=== PATIENT | female | born 1995 | race Two or more races ===

== ENCOUNTER 2016-11-26 10:04 | Emergency (ER) | payer MEDICAID ==
[~2016-11-26] VITALS: Ht 157.5 cm; Wt 48.5 kg
[2016-11-26 10:32] VITALS: BP 122/72
[2016-11-26 10:52] LABS: APPEARANCE,URINE CLEAR; KETONES,URINE 1+ (NEGATIVE); LEUKOCYTE ESTERASE ,URINE NEGATIVE (NEGATIVE); NITRITE,URINE NEGATIVE (NEGATIVE); PH,URINE 6 (4.5-8.0); PROTEIN,URINE 1+ (NEGATIVE); UROBILINOGEN,URINE NORMAL MG/DL (0.0-1.0)
[2016-11-26 10:55] LABS: EOSINOPHILS % (AUTO) 3.9 % (0.0-3.0); LYMPHOCYTES % (AUTO) 30.7 % (20.0-45.0); MEAN CORPUSCULAR HEMOGLOBIN 29.7 PG (27.0-31.0); MEAN CORPUSCULAR VOLUME 93 FL (80-99); MEAN PLATELET VOLUME 7.5 FL (6.5-10.1); MONOCYTES % (AUTO) 7.3 % (1.0-10.0); NEUTROPHILS % (AUTO) 57.2 % (45.0-75.0); PLATELET COUNT 285 K/UL (150-450); RED BLOOD COUNT 4.59 M/UL (4.20-5.40); RED CELL DISTRIBUTION WIDTH 11.8 % (11.6-14.8); WHITE BLOOD COUNT 6.1 K/UL (4.8-10.8)
[2016-11-26 11:10] LABS: BACTERIA,URINE FEW /HPF; RBC,URINE 0-2 /HPF (0 - 2); SQUAMOUS EPITHELIAL CELL,UR MODERATE /LPF (NONE/OCC); WBC,URINE 0-2 /HPF (0 - 2)
[2016-11-26 11:13] LABS: ACETAMINOPHEN < 10 ug/mL (10-30); ALANINE AMINOTRANSFERASE 20 U/L (3-33); ALBUMIN/GLOBULIN RATIO 1.6 (1.0-2.7); ALCOHOL 33 mg/dL; ANION GAP 16 (5-15); ASPARTATE AMINO TRANSFERASE 30 U/L (5-40); CALCIUM 9.3 mg/dL (8.6-10.2); CARBAMAZEPINE (TEGRETOL) < 2.0 ug/mL (4.0-12.0); CARBON DIOXIDE 18 mEQ/L (20-30); CHLORIDE 106 mEQ/L (98-107); CREATININE 0.8 mg/dL (0.5-0.9); GLOMERULAR FILTRATION RATE > 60 mL/min (>60); HEMOLYSIS 12; POTASSIUM 4.3 mEQ/L (3.4-4.9); SODIUM 140 mEQ/L (135-145); TOTAL PROTEIN 7.2 g/dL (6.6-8.7)
[2016-11-26 11:38] VITALS: BP 110/63
[2016-11-26 11:39] VITALS: BP 110/63
--- NOTE | 2016-11-26 11:49 | Emergency Room Report ---
History of Present Illness General Chief Complaint: Altered Mental Status Source: Patient Present Illness HPI 21-year-old female presents ED for evaluation. Per EMS patient was found sleeping in a make shift shed. Her friends called 911. States that she was drinking alcohol last night. Upon arrival patient is confused but is more awake. admits to drinking alcohol. Denies any drug use. Upon arrival patient also stated that she did not know where her 5-year-old son was. States that the son was with her last night. Patient also notes history of seizures. Does not know what medication she takes but has the medication at home. Normally takes at nighttime did not take it last night. No seizure was witnessed. No other aggravating relieving factors. Denies any other associated symptoms Allergies: Coded Allergies: No Known Allergies (Unverified , 11/26/16) Patient History Past Medical History: seizures Past Surgical History: none Pertinent Family History: none Social History: Reports: alcohol use, Denies: drug use, smoking Last Menstrual Period: 10/28/16 Now: No : 1 Para: 1 Immunizations: UTD Reviewed Nursing Documentation: PMH: Agreed, PSxH: Agreed Nursing Documentation-PMH Past Medical History: No History, Except For Hx Seizures: Yes Review of Systems All Other Systems: negative except mentioned in HPI Physical Exam Vital Signs Date Time Temp Pulse Resp B/P Pulse Ox O2 Delivery O2 Flow Rate FiO2 11/26/16 10:05 98.2 130 20 135/76 98 Room Air Sp02 EP Interpretation: reviewed, normal General Appearance: no apparent distress, alert, GCS 15, non-toxic Head: normocephalic, atraumatic Eyes: bilateral eye PERRL, bilateral eye normal inspection ENT: hearing grossly normal, normal pharynx, no angioedema, normal voice Neck: full range of motion, supple/symm/no masses Respiratory: chest non-tender, lungs clear, normal breath sounds, speaking full sentences Cardiovascular #1: regular rate, rhythm, no edema Cardiovascular #2: 2+ carotid (R), 2+ carotid (L), 2+ radial (R), 2+ radial (L) , 2+ dorsalis pedis (R), 2+ dorsalis pedis (L) Gastrointestinal: normal bowel sounds, non tender, soft, non-distended, no guarding, no rebound Rectal: deferred Genitourinary: normal inspection, no CVA tenderness Musculoskeletal: back normal, gait/station normal, normal range of motion, non- tender Neurologic: alert, oriented x3, responsive, motor strength/tone normal, sensory intact, speech normal Psychiatric: judgement/insight normal, memory normal, mood/affect normal, no suicidal/homicidal ideation Reflexes: 3+ bicep (R), 3+ bicep (L), 3+ tricep (R), 3+ tricep (L), 3+ knee (R) , 3+ knee (L) Skin: normal color, no rash, warm/dry, well hydrated Lymphatic: no adenopathy Medical Decision Making Diagnostic Impression: Primary Impression: Alcohol intoxication Qualified Codes: F10.920 - Alcohol use, unspecified with intoxication, uncomplicated Additional Impression: Altered mental status Qualified Codes: R41.82 - Altered mental status, unspecified ER Course Hospital Course 21-year-old F presents to ED with altered mental status. witnessed drinking last night Differential diagnoses include: Psychosis, EtOH, drug abuse Clinical course patient placed on stretcher. On air sampling and monitoring. After initial history and physical ordered labs, IV fluids, EKG Labs reviewed-electrolytes okay, no leukocytosis, hemoglobin/hematocrit stable, tox panel negative, + ETOH EKG shows sinus tachycardia no acute changes interpreted by me Patient is now awake alert oriented x3, ambulating. Police were called regarding the son. They found out that the son is with family friends at home safely. Patient can be safely discharged at this time i. I feel this is a highly complex case requiring extensive working including EKG/Rhythm strip, Xray/CT/US, Blood/urine lab work, repeat exams while in ED, and administration of strong opiates/narcotics for pain control, admission to hospital or close patient follow up. Diagnosis - alcohol intoxication, AMS Stable and discharged to home. Followup with PMD. Return to ED if symptoms recur or worsen Labs Test 11/26/16 10:27 White Blood Count 6.1 K/UL (4.8-10.8) Red Blood Count 4.59 M/UL (4.20-5.40) Hemoglobin 13.6 G/DL (12.0-16.0) Hematocrit 42.6 % (37.0-47.0) Mean Corpuscular Volume 93 FL (80-99) Mean Corpuscular Hemoglobin 29.7 PG (27.0-31.0) Mean Corpuscular Hemoglobin Concent 32.0 G/DL (32.0-36.0) Red Cell Distribution Width 11.8 % (11.6-14.8) Platelet Count 285 K/UL (150-450) Mean Platelet Volume 7.5 FL (6.5-10.1) Neutrophils (%) (Auto) 57.2 % (45.0-75.0) Lymphocytes (%) (Auto) 30.7 % (20.0-45.0) Monocytes (%) (Auto) 7.3 % (1.0-10.0) Eosinophils (%) (Auto) 3.9 % (0.0-3.0) Basophils (%) (Auto) 1.0 % (0.0-2.0) Urine Color Pale yellow Urine Appearance Clear Urine pH 6 (4.5-8.0) Urine Specific [place] 1.020 (1.005-1.035) Urine Protein 1+ (NEGATIVE) Urine Glucose (UA) Negative (NEGATIVE) Urine Ketones 1+ (NEGATIVE) Urine Occult Blood Negative (NEGATIVE) Urine Nitrite Negative (NEGATIVE) Urine Bilirubin Negative (NEGATIVE) Urine Urobilinogen Normal MG/DL (0.0-1.0) Urine Leukocyte Esterase Negative (NEGATIVE) Urine RBC 0-2 /HPF (0 - 2) Urine WBC 0-2 /HPF (0 - 2) Urine Squamous Epithelial Cells Moderate /LPF (NONE/OCC) Urine Bacteria Few /HPF (NONE) Urine HCG, Qualitative Negative Sodium Level 140 mEQ/L (135-145) Potassium Level 4.3 mEQ/L (3.4-4.9) Chloride Level 106 mEQ/L (98-107) Carbon Dioxide Level 18 mEQ/L (20-30) Anion Gap 16 (5-15) Blood Urea Nitrogen 7 mg/dL (7-23) Creatinine 0.8 mg/dL (0.5-0.9) Estimat Glomerular Filtration Rate > 60 mL/min (>60) Glucose Level 90 mg/dL (74-106) Calcium Level 9.3 mg/dL (8.6-10.2) Total Bilirubin < 0.2 mg/dL (0.0-1.2) Aspartate Amino Transf (AST/SGOT) 30 U/L (5-40) Alanine Aminotransferase (ALT/SGPT) 20 U/L (3-33) Alkaline Phosphatase 74 U/L (35-104) Total Protein 7.2 g/dL (6.6-8.7) Albumin 4.5 g/dL (3.5-5.2) Globulin 2.7 g/dL Albumin/Globulin Ratio 1.6 (1.0-2.7) Salicylates Level < 1 mg/dL (10-30) Urine Opiates Screen Negative (NEGATIVE) Acetaminophen Level < 10 ug/mL (10-30) Urine Barbiturates Screen Negative (NEGATIVE) Phenytoin (Dilantin) Level < 0.8 ug/mL (10-20) Carbamazepine (Tegretol) Level < 2.0 ug/mL (4.0-12.0) Phencyclidine (PCP) Screen Negative (NEGATIVE) Urine Amphetamines Screen Negative (NEGATIVE) Phenobarbital Level < 2.4 ug/mL (20.0-40.0) Urine Benzodiazepines Screen Negative (NEGATIVE) Urine Cocaine Screen Negative (NEGATIVE) Urine Marijuana (THC) Screen Negative (NEGATIVE) Serum Alcohol 33 mg/dL EKG Diagnostic Results Rate: tachycardiac Rhythm: NSR ST Segments: no acute changes ASA given to the pt in ED: No Rhythm Strip Diag. Results EP Interpretation: yes Rhythm: NSR, no PVC's, no ectopy Last Vital Signs Date Time Temp Pulse Resp B/P Pulse Ox O2 Delivery O2 Flow Rate FiO2 11/26/16 11:39 98.2 97 16 110/63 99 Room Air Status: improved Disposition: HOME, SELF-CARE Condition: Stable Patient Instructions: Alcohol Intoxication SUJATHA DICK M.D. Nov 26, 2016 11:49
--- NOTE | 2016-11-27 12:03 | Cardiology Report ---
APPROVED REPORT EKG Measurement Heart [id number] Sinus tachycardia Rightward axis Borderline ECG
== END 2016-11-26 11:39 | disposition home or self-care (01) ==
LOC: EDBD 10:04 → EMR 11:28
DX: R41.82 Altered mental status, unspecified (principal); F10.920 Alcohol use, unspecified with intoxication, uncomplicated
CPT/HCPCS: 36415; 80053; 80156; 80184; 80185; 80300; 80329; 81003; 81025; 82962; 85025; 93005; 96374

== ENCOUNTER 2017-09-19 18:23 | Emergency (ER) | payer MEDICAID ==
[~2017-09-19] VITALS: Ht 160 cm; Wt 51.7 kg
[2017-09-19] MEDS ORDERED: KEPPRA500 M4 ORAL (18:32)
[2017-09-19 18:34] VITALS: BP 123/76
--- NOTE | 2017-09-19 18:44 | Emergency Room Report ---
History of Present Illness General Chief Complaint: Seizure Source: Patient Present Illness HPI Patient is a 21-year-old female presented after witnessed seizure. Patient prior history of seizure disorder and reportedly been taking Keppra. The patient was noted to havePatient denied any headache. She denied any fever or dysuria. Patient states that she is not .The patient had a tonic- clonic seizure. Patient states that she's had previous seizures since age 13.The patient had. She had her Keppra dose reduced to 500 mg Allergies: Coded Allergies: No Known Allergies (Unverified , 11/26/16) Patient History Past Medical History: see triage record, seizures Reviewed Nursing Documentation: PMH: Agreed; PSxH: Agreed Nursing Documentation-PMH Hx Seizures: Yes Review of Systems All Other Systems: negative except mentioned in HPI Physical Exam Vital Signs Date Time Temp Pulse Resp B/P (MAP) Pulse Ox O2 Delivery O2 Flow Rate FiO2 09/19/17 18:27 98.3 106 20 123/76 99 Room Air 98.2 Sp02 EP Interpretation: reviewed, normal General Appearance: normal inspection, well appearing, no apparent distress, alert, GCS 15 Head: atraumatic ENT: normal ENT inspection, hearing grossly normal, normal voice Neck: normal inspection, full range of motion, supple, no bony tend Respiratory: normal inspection, lungs clear, normal breath sounds, no respiratory distress, no retraction, no wheezing Cardiovascular #1: regular rate, rhythm, no edema Gastrointestinal: normal inspection, normal bowel sounds, non tender, soft, no guarding, no hernia Genitourinary: no CVA tenderness Musculoskeletal: normal inspection, back normal, normal range of motion Neurologic: normal inspection, alert, oriented x3, responsive, criminal psychologist III-XII nml as tested, speech normal Psychiatric: normal inspection, judgement/insight normal, mood/affect normal Skin: normal inspection, normal color, no rash Medical Decision Making Diagnostic Impression: Primary Impression: Seizure disorder ER Course Patient presented for seizure. Differential diagnosis included cysticercosis, electrolyte abnormality, mass lesion, or cranial hemorrhage. Patient has a benign exam and does not appear to require any further imaging or laboratory testing at this time. Patient is loaded with IV Keppra. The patient was given prescription for other seizure medications. She is advised to take extra doses of her Keppra and Zonegran is not covered. Patient was advised follow up with her neurologist in 1-2 days for medication adjustments. Last Vital Signs Date Time Temp Pulse Resp B/P (MAP) Pulse Ox O2 Delivery O2 Flow Rate FiO2 09/19/17 18:34 106 20 Room Air 09/19/17 18:34 98.2 123/76 99 98.2 Status: improved Disposition: HOME, SELF-CARE Condition: Stable Scripts Zonisamide* (ZONEGRAN*) 100 Mg Capsule 100 MG ORAL DAILY, #30 CAP 0 Refills Prov: Solomon Calloway 09/19/17 Solomon Calloway September 19, 2017 18:44
[2017-09-19] MEDS ORDERED: ZONEGRAN100 MG ORAL (19:35)
[2017-09-19] MEDS ORDERED: levETIRAcetam 500mg/NS100ml 100 ML IVPB ONE (19:45)
[2017-09-19 20:05] VITALS: BP 104/60
[2017-09-19 20:18] VITALS: BP 104/60
== END 2017-09-19 20:19 | disposition home or self-care (01) ==
LOC: EMR 18:59
DX: G40.909 Epilepsy, unspecified, not intractable, without status epilepticus (principal)
CPT/HCPCS: 81025; 96361; 96374; 99284; J1953

== ENCOUNTER 2017-10-31 15:29 | Emergency (ER) | payer SELFPAY ==
[~2017-10-31] VITALS: Ht 157.5 cm; Wt 51.7 kg
[~2017-10-31 15:29] MED LIST: KEPPRA500 M4 ORAL; ZONEGRAN100 MG ORAL
[2017-10-31 15:46] VITALS: BP 118/67
[2017-10-31] MEDS ORDERED: IBUPROFEN600 MG ORAL (16:19)
[2017-10-31] MEDS ORDERED: PERMETHRIN60 GM TOPIC (16:19)
--- NOTE | 2017-10-31 16:32 | Emergency Room Report ---
History of Present Illness General Chief Complaint: General Complaint Source: Patient Present Illness HPI 22-year-old female presents today with a scalp wound. Patient states that she had it for about a month which was a bump and then she picked at it and it started bleeding. No purulent drainage. No fever no chills. Also states that she has lice. No other complaints Allergies: Coded Allergies: No Known Allergies (Unverified , 11/26/16) Patient History Past Medical History: see triage record Past Surgical History: none Pertinent Family History: none Last Menstrual Period: Depoprovera Now: No Reviewed Nursing Documentation: PMH: Agreed; PSxH: Agreed Nursing Documentation-PMH Hx Seizures: Yes Review of Systems All Other Systems: negative except mentioned in HPI Physical Exam Vital Signs Date Time Temp Pulse Resp B/P (MAP) Pulse Ox O2 Delivery O2 Flow Rate FiO2 10/31/17 15:36 98.8 81 17 118/67 98 Room Air 98.8 Sp02 EP Interpretation: reviewed, normal General Appearance: normal inspection, well appearing, no apparent distress, alert, GCS 15, non-toxic Head: normocephalic - Patient multiple lice in hair. Also found to have small bump no fluctuant abscess, no purulent drainage, nontender, very small less than 1 cm, atraumatic Eyes: bilateral eye normal inspection, bilateral eye PERRL, bilateral eye EOMI ENT: normal ENT inspection, normal pharynx, normal voice, moist mucus membranes Neck: normal inspection, full range of motion, supple Respiratory: normal inspection, lungs clear, normal breath sounds, no respiratory distress, no retraction, no wheezing, speaking full sentences, chest symmetrical Cardiovascular #1: normal inspection, regular rate, rhythm, normal capillary refill Cardiovascular #2: 2+ radial (R), 2+ radial (L) Gastrointestinal: normal inspection, non tender, soft, non-distended, no guarding Musculoskeletal: normal inspection, back normal, normal range of motion, non- tender Neurologic: normal inspection, alert, oriented x3, responsive, motor strength/ tone normal, sensory intact, normal gait, speech normal Psychiatric: normal inspection, judgement/insight normal, memory normal Skin: normal inspection, normal color, no rash, warm/dry, well hydrated, normal turgor Medical Decision Making Diagnostic Impression: Primary Impression: Head lice Additional Impression: Scalp wound ER Course 22-year-old female with scalp wound DDX: Abscess versus cellulitis versus wound Physical exam more likely consistent with very small wound no signs of infection Plan: None ER course: Patient has remained stable during ED stay. Disposition: Patient is to be discharged to home. Prescriptions given aremotrin and permethrin cream for lice Patient is instructed to follow up with their primary care doctor within 5 days. Please note that this Emergency Department Report was dictated using [employer] analysis assistant technology software, occasionally this can lead to erroneous entry secondary to interpretation by the dictation equipment Last Vital Signs Date Time Temp Pulse Resp B/P (MAP) Pulse Ox O2 Delivery O2 Flow Rate FiO2 10/31/17 15:36 98.8 81 17 118/67 98 Room Air 98.8 Disposition: HOME, SELF-CARE Condition: Stable Scripts Permethrin* (ELIMITE*) 60 Gm Cream..g. 1 APPLIC TOPIC ONCE, #60 GM 0 Refills Leave on hair for 10 minutes, then rinse; repeat on day 9 Prov: Matthew Scott M.D. 10/31/17 Ibuprofen* (MOTRIN*) 600 Mg Tablet 600 MG ORAL Q8H PRN for For Pain, #30 TAB 0 Refills Prov: Matthew Scott M.D. 10/31/17 Patient Instructions: Lice, Adult, Wound Check Additional Instructions: PLEASE SEE YOUR PCP IN 1 WEEK Matthew Scott M.D. Oct 31, 2017 16:32
[2017-10-31 16:35] VITALS: BP 118/67
== END 2017-10-31 16:35 | disposition home or self-care (01) ==
LOC: EMR 16:02
DX: R22.0 Localized swelling, mass and lump, head (principal); B85.0 Pediculosis due to Pediculus humanus capitis
CPT/HCPCS: 99284

== ENCOUNTER 2018-07-29 20:55 | Inpatient (IN) | payer MEDICAID, OTHER ==
[~2018-07-29] VITALS: Ht 160 cm; Wt 54.2 kg
[~2018-07-29 20:55] MED LIST changes: +IBUPROFEN600 MG ORAL; +PERMETHRIN60 GM TOPIC
--- NOTE | 2018-07-29 21:04 | Emergency Room Report ---
History of Present Illness General Chief Complaint: altered Source: Patient, Family Member Present Illness HPI Patient presents with complaints of altered mental status reports that throughout the day today patient has appears confused Staring out into space Has not been verbal with him He reports that the patient had approximately 4 seizures last night which is not normal for her He cannot provide appropriate reasoning for why the patient was not brought in yesterday There was no reports of vomiting no reports of diarrhea Patient takes medication for seizures However also unknown medication History of present illness is significantly limited as the patient is nonverbal with us Allergies: Coded Allergies: No Known Allergies (Unverified , 11/26/16) Patient History Limited by: medical condition Past Medical History: see triage record Pertinent Family History: none Reviewed Nursing Documentation: PMH: Agreed; PSxH: Agreed Nursing Documentation-PMH Hx Seizures: Yes Review of Systems All Other Systems: limited - Other than the ones mentioned in the history of present illness all others are reviewed however they do stay limited due to the patient's mental status Physical Exam 99% on RA,normal oxygenation interpretation Sp02 EP Interpretation: reviewed, normal General Appearance: other - Patient appears confused staring around the room Head: normocephalic, atraumatic Eyes: bilateral eye other - Bilateral pupils appear somewhat dilated, minimal reaction mild conjunctival erythema ENT: normal pharynx, no angioedema Neck: supple, thyroid normal Respiratory: lungs clear, no respiratory distress, no retraction, no accessory muscle use Cardiovascular #1: regular rate, rhythm Gastrointestinal: non tender, soft Genitourinary: no CVA tenderness Musculoskeletal: other - Patient was not following all commands fully however no obvious focal deficit Neurologic: responsive - 2 physical stimuli with verbal stimuli focuses towards the stimuli, Skin: no rash, warm/dry Lymphatic: no adenopathy Medical Decision Making Diagnostic Impression: Primary Impression: Encephalopathy Additional Impression: Seizure disorder ER Course Patient is a fairly complex patient with multiple differential to consideration including but not limited to cardiac cardiopulmonary , intracranial , neurological , neurosurgical , medication reaction and vascular emergencies Patient's urine sample does not show any obvious positive on the drug screen however Medications and drug such as GHB can be negative on the screen Urine sample does show significant UTI Patient provided with further hydration Given the continued confusion CT head was obtained which was negative Consideration for Keppra overdose is also made however reports the patient did not take too many of that medication Patient is admitted for further inpatient care Labs Test 07/29/18 21:20 07/29/18 22:30 White Blood Count 8.1 K/UL (4.8-10.8) Red Blood Count 4.59 M/UL (4.20-5.40) Hemoglobin 13.7 G/DL (12.0-16.0) Hematocrit 41.3 % (37.0-47.0) Mean Corpuscular Volume 90 FL (80-99) Mean Corpuscular Hemoglobin 29.9 PG (27.0-31.0) Mean Corpuscular Hemoglobin Concent 33.2 G/DL (32.0-36.0) Red Cell Distribution Width 11.1 % (11.6-14.8) Platelet Count 256 K/UL (150-450) Mean Platelet Volume 7.9 FL (6.5-10.1) Neutrophils (%) (Auto) 67.7 % (45.0-75.0) Lymphocytes (%) (Auto) 23.7 % (20.0-45.0) Monocytes (%) (Auto) 6.2 % (1.0-10.0) Eosinophils (%) (Auto) 1.6 % (0.0-3.0) Basophils (%) (Auto) 0.9 % (0.0-2.0) Urine Color Pale yellow Urine Appearance Slightly cloudy Urine pH 6.5 (4.5-8.0) Urine Specific [place] 1.010 (1.005-1.035) Urine Protein Negative (NEGATIVE) Urine Glucose (UA) Negative (NEGATIVE) Urine Ketones 3+ (NEGATIVE) Urine Blood Negative (NEGATIVE) Urine Nitrite Positive (NEGATIVE) Urine Bilirubin Negative (NEGATIVE) Urine Urobilinogen Normal MG/DL (0.0-1.0) Urine Leukocyte Esterase 1+ (NEGATIVE) Urine RBC 2-4 /HPF (0 - 2) Urine WBC 5-10 /HPF (0 - 2) Urine Squamous Epithelial Cells Moderate /LPF (NONE/OCC) Urine Bacteria Many /HPF (NONE) Urine HCG, Qualitative Negative (NEGATIVE) Sodium Level 140 MMOL/L (136-145) Potassium Level 4.0 MMOL/L (3.5-5.1) Chloride Level 103 MMOL/L (98-107) Carbon Dioxide Level 27 MMOL/L (21-32) Anion Gap 10 mmol/L (5-15) Blood Urea Nitrogen 8 mg/dL (7-18) Creatinine 0.8 MG/DL (0.55-1.30) Estimat Glomerular Filtration Rate > 60 mL/min (>60) Glucose Level 103 MG/DL (74-106) Calcium Level 9.6 MG/DL (8.5-10.1) Total Bilirubin 0.5 MG/DL (0.2-1.0) Aspartate Amino Transf (AST/SGOT) 15 U/L (15-37) Alanine Aminotransferase (ALT/SGPT) 17 U/L (12-78) Alkaline Phosphatase 73 U/L (46-116) Total Protein 7.9 G/DL (6.4-8.2) Albumin 4.3 G/DL (3.4-5.0) Globulin 3.6 g/dL Albumin/Globulin Ratio 1.2 (1.0-2.7) Salicylates Level 0.2 ug/mL (2.8-20) Urine Opiates Screen Negative (NEGATIVE) Acetaminophen Level < 2 MCG/ML (10-30) Urine Barbiturates Screen Negative (NEGATIVE) Phenytoin (Dilantin) Level < 0.5 ug/mL (10-20) Phencyclidine (PCP) Screen Negative (NEGATIVE) Urine Amphetamines Screen Negative (NEGATIVE) Urine Benzodiazepines Screen Negative (NEGATIVE) Urine Cocaine Screen Negative (NEGATIVE) Urine Marijuana (THC) Screen Negative (NEGATIVE) Serum Alcohol < 3 mg/dL Lactic Acid Level 1.00 mmol/L (0.4-2.0) Rhythm Strip Diag. Results EP Interpretation: yes Rate: 77 Rhythm: NSR, no PVC's, no ectopy CT/MRI/US Diagnostic Results CT/MRI/US Diagnostic Results : Impression CT head:nad Status: unchanged Disposition: ADMITTED INPATIENT Condition: Serious Suman Parnell Jul 29, 2018 21:04
--- NOTE | 2018-07-29 21:22 | NUR ---
ED Nurse Note: Patient walked into ED accompanied by father c/o Altered mental status, patients dad states that the the last known well time was on sunday07/26/18. Awake disoriented. IAN LAZARO.
[2018-07-29 21:41] VITALS: BP 124/88
[2018-07-29] MEDS ORDERED: INDERAL LA80 MG ORAL (21:45)
[2018-07-29] MEDS ORDERED: INDERAL LA60 MG ORAL (21:45)
[2018-07-29 21:51] LABS: APPEARANCE,URINE SLIGHTLY CLOUDY; BILIRUBIN, URINE NEGATIVE (NEGATIVE); COLOR,URINE PALE YELLOW; GLUCOSE, URINE (UA) NEGATIVE (NEGATIVE); KETONES,URINE 3+ (NEGATIVE); LEUKOCYTE ESTERASE ,URINE 1+ (NEGATIVE); NITRITE,URINE POSITIVE (NEGATIVE); PH,URINE 6.5 (4.5-8.0); PROTEIN,URINE NEGATIVE (NEGATIVE); UROBILINOGEN,URINE NORMAL MG/DL (0.0-1.0)
[2018-07-29 21:56] LABS: BASOPHILS % (AUTO) 0.9 % (0.0-2.0); EOSINOPHILS % (AUTO) 1.6 % (0.0-3.0); HEMATOCRIT 41.3 % (37.0-47.0); HEMOGLOBIN 13.7 G/DL (12.0-16.0); LYMPHOCYTES % (AUTO) 23.7 % (20.0-45.0); MEAN CORPUSCULAR VOLUME 90 FL (80-99); MONOCYTES % (AUTO) 6.2 % (1.0-10.0); NEUTROPHILS % (AUTO) 67.7 % (45.0-75.0); PLATELET COUNT 256 K/UL (150-450); RED BLOOD COUNT 4.59 M/UL (4.20-5.40); RED CELL DISTRIBUTION WIDTH 11.1 % (11.6-14.8); WHITE BLOOD COUNT 8.1 K/UL (4.8-10.8)
[2018-07-29 22:20] LABS: ANION GAP 10 mmol/L (5-15); BLOOD UREA NITROGEN 8 mg/dL (7-18); CALCIUM 9.6 MG/DL (8.5-10.1); CARBON DIOXIDE 27 MMOL/L (21-32); CHLORIDE 103 MMOL/L (98-107); CREATININE 0.8 MG/DL (0.55-1.30); SODIUM 140 MMOL/L (136-145)
[2018-07-29 22:24] LABS: ALANINE AMINOTRANSFERASE 17 U/L (12-78); ALBUMIN 4.3 G/DL (3.4-5.0); ALBUMIN/GLOBULIN RATIO 1.2 (1.0-2.7); ALKALINE PHOSPHATASE 73 U/L (46-116); ASPARTATE AMINO TRANSFERASE 15 U/L (15-37); BILIRUBIN,TOTAL 0.5 MG/DL (0.2-1.0)
[2018-07-29] MEDS ORDERED: cefTRIAXone 1 GM in NS 55 ML IVPB ONE (22:30)
[2018-07-30] VITALS (7 sets, daily range): BP systolic 104–131; BP diastolic 63–82
--- NOTE | 2018-07-30 01:40 | NUR ---
TRANSFER TO FLOOR: Patient transferred to [facility] 319-2 as ordered, per MD Zeyad. Report given to Giovanna. Belongings list completed with receiving RN
--- NOTE | 2018-07-30 01:50 | NUR ---
NURSE NOTES: Patient received via [facility] from ER. Addendum: 07/30/18 at 0213 by Giovanna Prieto RN Received to room 309, with belongings accounted for. No visitor at bedside. Saline lock, right AC #20 Addendum: 07/30/18 at 021 by Giovanna Prieto RN Patient non-verbal. Unable to assess A/O status or history. VSS. Skin intact. Call light within reach. Placed on [place] bed, bed alarm on. Will contact MD for admission orders. Will continue to monitor.
[2018-07-30] MEDS ORDERED: LORazepam Inj 2mg/ml 1ml IV PRN ×2 (03:00→04:15)
--- NOTE | 2018-07-30 04:13 | NUR ---
NURSE NOTES S/w Theodora from [facility], clarified orders for Ativan every 5 minutes as needed for seizure and Rocephin scheduling to be adjusted according to dosage given in ER at around 2230. Addendum: 07/30/18 at 0538 by Giovanna Prieto RN Patient in room close to nurses' station. Side rails padded, and suction set up for seizure precautions.
[2018-07-30] MEDS: D5NS 1,000 ML IV SCH ×3 (04:28→23:04)
[2018-07-30 06:25] LABS: BASOPHILS % (AUTO) 0.5 % (0.0-2.0); EOSINOPHILS % (AUTO) 0.5 % (0.0-3.0); HEMATOCRIT 39.9 % (37.0-47.0); HEMOGLOBIN 13.3 G/DL (12.0-16.0); LYMPHOCYTES % (AUTO) 16.3 % (20.0-45.0); MEAN CORPUSCULAR VOLUME 90 FL (80-99); MONOCYTES % (AUTO) 5.9 % (1.0-10.0); NEUTROPHILS % (AUTO) 76.9 % (45.0-75.0); PLATELET COUNT 257 K/UL (150-450); RED BLOOD COUNT 4.43 M/UL (4.20-5.40); RED CELL DISTRIBUTION WIDTH 11.5 % (11.6-14.8); WHITE BLOOD COUNT 7.6 K/UL (4.8-10.8)
[2018-07-30 06:47] LABS: ALANINE AMINOTRANSFERASE 18 U/L (12-78); ALBUMIN/GLOBULIN RATIO 1.2 (1.0-2.7); ALKALINE PHOSPHATASE 64 U/L (46-116); ANION GAP 10 mmol/L (5-15); ASPARTATE AMINO TRANSFERASE 14 U/L (15-37); BILIRUBIN,TOTAL 0.4 MG/DL (0.2-1.0); BLOOD UREA NITROGEN 9 mg/dL (7-18); CALCIUM 9.3 MG/DL (8.5-10.1); CARBON DIOXIDE 26 MMOL/L (21-32); CHLORIDE 105 MMOL/L (98-107); CREATININE 0.7 MG/DL (0.55-1.30); POTASSIUM 3.9 MMOL/L (3.5-5.1); SODIUM 140 MMOL/L (136-145)
--- NOTE | 2018-07-30 07:30 | NUR ---
HAND-OFF: Report given to LATISHA Cuevas. Endorsed to please follow up with MD regarding home meds.
--- NOTE | 2018-07-30 07:45 | NUR ---
NURSE NOTES: Received report from Giovanna Holder RN. Rounding done with outgoing nurse. Patient a/o x1 lying on the bed. No respiratory distress noted. Patient stat no family. No one on her face sheet. Left bra was wet but no breast milk noted. Bed in lowest position, call light within reach. Will continue to monitor.
[2018-07-30] MEDS: Pantoprazole Inj IVP SCH (08:54)
[2018-07-30] MEDS: Heparin 5000 units/ml inj SUBQ SCH ×2 (08:58→21:00)
--- NOTE | 2018-07-30 09:28 | NUR ---
CASE MANAGEMENT:REVIEW 22 YR OLD FEMALE PRESENTED TO ER BY HIS FATHER CC: AMS. S/P 4 SEIZURES LAST NIGHT...ON KEPPRA SI: ENCEPHALOPATHY. SEIZURE D/O 98.2 90 17 124/88 100% ON RA DILANTIN LEVEL<0.5 IS: IV ROCEPHIN BLOOD CX CT HEAD : MED/SURG STATUS 3 EAST INTERQUAL CRITERIA MET
--- NOTE | 2018-07-30 10:06 | NUR ---
NURSE NOTES: Called DR. Jeffers regarding reconcile home meds. MD ordered continue 1. keppra 500mg q12 2. propranolol 60mg daily 3. zonisamide 100mg daily Noted and carried out.
--- NOTE | 2018-07-30 10:48 | NUR ---
NURSE NOTES: Dr. Jeffers ordered keppra level tomorrow morning.
--- NOTE | 2018-07-30 11:33 | History & Physical ---
History and Physical History & Physicial seen and examined. Full Dictation completed on 1133 hrs Crissy Jeffers MD Jul 30, 2018 11:33
--- NOTE | 2018-07-30 11:35 | General Progress Note ---
Assessment/Plan Assessment/Plan full dictaino in progress Plan: 1- Sz : uncontrolled 2- prolonged post ictal phase Will consult Neuro c/w home meds Subjective Allergies: Coded Allergies: No Known Allergies (Unverified , 11/26/16) Objective Last 24 Hour Vital Signs Date Time Temp Pulse Resp B/P (MAP) Pulse Ox O2 Delivery O2 Flow Rate FiO2 07/30/18 08:00 98.6 104 19 110/82 (91) 97 104 07/30/18 06:01 Room Air 07/30/18 04:32 98.1 82 16 126/77 (93) 96 07/30/18 02:00 98.0 86 17 129/82 (98) 96 07/30/18 01:40 98.0 86 17 129/82 96 Room Air 07/30/18 00:00 98.0 86 17 129/82 (98) 96 07/29/18 21:41 90 17 Room Air 07/29/18 21:41 98.2 98 17 124/88 100 Room Air 07/29/18 21:06 98.2 90 17 124/88 100 Room Air Intake and Output 07/29/18 07/30/18 18:59 06:59 Intake Total 240 ml Balance 240 ml Intake Oral 240 ml # Voids 1 Laboratory Tests 07/29/18 21:20: White Blood Count 8.1, Red Blood Count 4.59, Hemoglobin 13.7, Hematocrit 41.3, Mean Corpuscular Volume 90, Mean Corpuscular Hemoglobin 29.9, Mean Corpuscular Hemoglobin Concent 33.2, Red Cell Distribution Width 11.1L, Platelet Count 256, Mean Platelet Volume 7.9, Neutrophils (%) (Auto) 67.7, Lymphocytes (%) (Auto) 23.7, Monocytes (%) (Auto) 6.2, Eosinophils (%) (Auto) 1.6, Basophils (%) (Auto ) 0.9, Urine Color Pale yellow, Urine Appearance Slightly cloudy, Urine pH 6.5, Urine Specific [place] 1.010, Urine Protein Negative, Urine Glucose (UA) Negative, Urine Ketones 3+H, Urine Blood Negative, Urine Nitrite PositiveH, Urine Bilirubin Negative, Urine Urobilinogen Normal, Urine Leukocyte Esterase 1+ H, Urine RBC 2-4H, Urine WBC 5-10H, Urine Squamous Epithelial Cells ModerateH, Urine Bacteria ManyH, Urine HCG, Qualitative Negative, Sodium Level 140, Potassium Level 4.0, Chloride Level 103, Carbon Dioxide Level 27, Anion Gap 10, Blood Urea Nitrogen 8, Creatinine 0.8, Estimat Glomerular Filtration Rate > 60, Glucose Level 103, Calcium Level 9.6, Total Bilirubin 0.5, Aspartate Amino Transf (AST/SGOT) 15, Alanine Aminotransferase (ALT/SGPT) 17, Alkaline Phosphatase 73, Total Protein 7.9, Albumin 4.3, Globulin 3.6, Albumin/Globulin Ratio 1.2, Salicylates Level 0.2L, Urine Opiates Screen Negative, Acetaminophen Level < 2L, Urine Barbiturates Screen Negative, Phenytoin (Dilantin) Level < 0.5L, Phencyclidine (PCP) Screen Negative, Urine Amphetamines Screen Negative, Urine Benzodiazepines Screen Negative, Urine Cocaine Screen Negative, Urine Marijuana (THC) Screen Negative, Serum Alcohol < 3 07/29/18 22:30: Lactic Acid Level 1.00 07/30/18 05:45: White Blood Count 7.6, Red Blood Count 4.43, Hemoglobin 13.3, Hematocrit 39.9, Mean Corpuscular Volume 90, Mean Corpuscular Hemoglobin 30.1, Mean Corpuscular Hemoglobin Concent 33.5, Red Cell Distribution Width 11.5L, Platelet Count 257, Mean Platelet Volume 8.5, Neutrophils (%) (Auto) 76.9H, Lymphocytes (%) (Auto) 16.3L, Monocytes (%) (Auto) 5.9, Eosinophils (%) (Auto) 0.5, Basophils (%) (Auto ) 0.5, Sodium Level 140, Potassium Level 3.9, Chloride Level 105, Carbon Dioxide Level 26, Anion Gap 10, Blood Urea Nitrogen 9, Creatinine 0.7, Estimat Glomerular Filtration Rate > 60, Glucose Level 124H, Calcium Level 9.3, Total Bilirubin 0.4, Aspartate Amino Transf (AST/SGOT) 14L, Alanine Aminotransferase ( ALT/SGPT) 18, Alkaline Phosphatase 64, Total Protein 7.3, Albumin 4.0, Globulin 3.3, Albumin/Globulin Ratio 1.2 Height (Feet): 5 Height (Inches): 3.00 Weight (Pounds): 120 Crissy Jeffers MD Jul 30, 2018 11:35
--- NOTE | 2018-07-30 12:15 | NUR ---
*-* INSURANCE *-* CLINICALS AND REVIEWS HAVE BEEN FAXED TO: [facility] ADMISSION REPORTED TO THAIS THIS IS A DUEL RISK AUTH#: [id number] NCM: PND FAX: [phone] PLEASE FAX CLINICALS TO ABOVE # Addendum: 07/31/18 at 0857 by MARIE SALINAS CM ba# [id number] Addendum: 07/31/18 at 0857 by MARIE SALINAS CM RUSSEL: MARIELENA P:[phone] F:[phone] DISCHARGE PLANNING F:[phone]
--- NOTE | 2018-07-30 12:35 | Diagnostic Imaging Report ---
Indications: Altered mental status Technique: Spiral acquisitions obtained through the brain. Angled axial and coronal 5 x 5 mm slices were reconstructed. Total dose length product 1344.42 mGycm. CTDI vol(s) 70.38 mGy. Dose reduction achieved using automated exposure control Comparison: None. Findings: Acute intracranial hemorrhage or edema, mass effect, nor midline shift. Normal hoffman-white differentiation. Normal-sized ventricles and extra-axial CSF spaces. Impression: Negative This agrees with the preliminary interpretation provided overnight by [facility] teleradiology service. The CT scanner at [facility] is accredited by the [employer] and the scans are performed using protocols designed to limit radiation exposure to as low as reasonably achievable to attain images of sufficient resolution adequate for diagnostic evaluation.
--- NOTE | 2018-07-30 19:45 | NUR ---
HAND-OFF: Report given to Elenita, POWER CRANE OPERATOR. Patient in stable condition.
--- NOTE | 2018-07-30 20:03 | Neurology Progress Note ---
Interim History Interim History ROS Limited/Unobtainable: Yes Complaints: Admission for Seizure Events: 1. UTI 2. AMS - Prolonged post ictal phase. Interim History HPI: 22 year old female presenting with complaints of altered mental status reports that throughout the day today patient has appears confused Staring out into space Has not been verbal with him He reports that the patient had approximately 4 seizures last night which is not normal for her He cannot provide appropriate reasoning for why the patient was not brought in yesterday There was no reports of vomiting no reports of diarrhea Patient takes medication for seizures However also unknown medication History of present illness is significantly limited as the patient has been largely nonverbal during most exams. Objective Physical Exam Last Vital Signs Date Time Temp Pulse Resp B/P (MAP) Pulse Ox O2 Delivery O2 Flow Rate FiO2 07/30/18 16:00 98.1 78 18 115/74 (88) 97 07/30/18 09:00 Room Air Laboratory Tests Test 07/29/18 21:20 07/29/18 22:30 07/30/18 05:45 White Blood Count 8.1 K/UL (4.8-10.8) 7.6 K/UL (4.8-10.8) Red Blood Count 4.59 M/UL (4.20-5.40) 4.43 M/UL (4.20-5.40) Hemoglobin 13.7 G/DL (12.0-16.0) 13.3 G/DL (12.0-16.0) Hematocrit 41.3 % (37.0-47.0) 39.9 % (37.0-47.0) Mean Corpuscular Volume 90 FL (80-99) 90 FL (80-99) Mean Corpuscular Hemoglobin 29.9 PG (27.0-31.0) 30.1 PG (27.0-31.0) Mean Corpuscular Hemoglobin Concent 33.2 G/DL (32.0-36.0) 33.5 G/DL (32.0-36.0) Red Cell Distribution Width 11.1 % (11.6-14.8) L 11.5 % (11.6-14.8) L Platelet Count 256 K/UL (150-450) 257 K/UL (150-450) Mean Platelet Volume 7.9 FL (6.5-10.1) 8.5 FL (6.5-10.1) Neutrophils (%) (Auto) 67.7 % (45.0-75.0) 76.9 % (45.0-75.0) H Lymphocytes (%) (Auto) 23.7 % (20.0-45.0) 16.3 % (20.0-45.0) L Monocytes (%) (Auto) 6.2 % (1.0-10.0) 5.9 % (1.0-10.0) Eosinophils (%) (Auto) 1.6 % (0.0-3.0) 0.5 % (0.0-3.0) Basophils (%) (Auto) 0.9 % (0.0-2.0) 0.5 % (0.0-2.0) Urine Color Pale yellow Urine Appearance Slightly cloudy Urine pH 6.5 (4.5-8.0) Urine Specific [place] 1.010 (1.005-1.035) Urine Protein Negative (NEGATIVE) Urine Glucose (UA) Negative (NEGATIVE) Urine Ketones 3+ (NEGATIVE) H Urine Blood Negative (NEGATIVE) Urine Nitrite Positive (NEGATIVE) H Urine Bilirubin Negative (NEGATIVE) Urine Urobilinogen Normal MG/DL (0.0-1.0) Urine Leukocyte Esterase 1+ (NEGATIVE) H Urine RBC 2-4 /HPF (0 - 2) H Urine WBC 5-10 /HPF (0 - 2) H Urine Squamous Epithelial Cells Moderate /LPF (NONE/OCC) H Urine Bacteria Many /HPF (NONE) H Urine HCG, Qualitative Negative (NEGATIVE) Sodium Level 140 MMOL/L (136-145) 140 MMOL/L (136-145) Potassium Level 4.0 MMOL/L (3.5-5.1) 3.9 MMOL/L (3.5-5.1) Chloride Level 103 MMOL/L (98-107) 105 MMOL/L (98-107) Carbon Dioxide Level 27 MMOL/L (21-32) 26 MMOL/L (21-32) Anion Gap 10 mmol/L (5-15) 10 mmol/L (5-15) Blood Urea Nitrogen 8 mg/dL (7-18) 9 mg/dL (7-18) Creatinine 0.8 MG/DL (0.55-1.30) 0.7 MG/DL (0.55-1.30) Estimat Glomerular Filtration Rate > 60 mL/min (>60) > 60 mL/min (>60) Glucose Level 103 MG/DL (74-106) 124 MG/DL (74-106) H Calcium Level 9.6 MG/DL (8.5-10.1) 9.3 MG/DL (8.5-10.1) Total Bilirubin 0.5 MG/DL (0.2-1.0) 0.4 MG/DL (0.2-1.0) Aspartate Amino Transf (AST/SGOT) 15 U/L (15-37) 14 U/L (15-37) L Alanine Aminotransferase (ALT/SGPT) 17 U/L (12-78) 18 U/L (12-78) Alkaline Phosphatase 73 U/L (46-116) 64 U/L (46-116) Total Protein 7.9 G/DL (6.4-8.2) 7.3 G/DL (6.4-8.2) Albumin 4.3 G/DL (3.4-5.0) 4.0 G/DL (3.4-5.0) Globulin 3.6 g/dL 3.3 g/dL Albumin/Globulin Ratio 1.2 (1.0-2.7) 1.2 (1.0-2.7) Salicylates Level 0.2 ug/mL (2.8-20) L Urine Opiates Screen Negative (NEGATIVE) Acetaminophen Level < 2 MCG/ML (10-30) L Urine Barbiturates Screen Negative (NEGATIVE) Phenytoin (Dilantin) Level < 0.5 ug/mL (10-20) L Phencyclidine (PCP) Screen Negative (NEGATIVE) Urine Amphetamines Screen Negative (NEGATIVE) Urine Benzodiazepines Screen Negative (NEGATIVE) Urine Cocaine Screen Negative (NEGATIVE) Urine Marijuana (THC) Screen Negative (NEGATIVE) Serum Alcohol < 3 mg/dL Lactic Acid Level 1.00 mmol/L (0.4-2.0) Neurologic Exam Objective NO PHYSICAL ASSESSMENT PERFORMED PATIENT WAS TRANSFERRED TO [facility] DUE TO CAPITATED HOSPITAL INSURANCE. Impression/Recommendations Problems: (1) Seizure disorder (2) UTI (urinary tract infection) (3) Altered mental status Status: stable, ambulating well Diagnostic Impression Prolonged Post Ictal Phase vs Psychogenic cause - Non focal findings and limited responses appropriate but unable to obtain as patient would not or was not able to answer all questions- she could not articulate which. Recommendations Continue Zonisamide/ Keppra Q4 Neuro Checks Consider consulting PSYCH Outpatient EEG Angela Garsia N.P. Jul 30, 2018 20:03
--- NOTE | 2018-07-30 20:25 | Consultation ---
History of Present Illness General Date patient seen: Jul 30, 2018 Chief Complaint: Altered Mental Status Reason for Consultation: Prolonged post ictal confusion Present Illness HPI 22 year old female presenting with altered mental status on 07/29/18 after approximately 4 seizures on prior evening as reported by . Her reported patient staring out into space throughout the day, appearing to be confused and was non-verbal upon admission. He reports that this seizure activity was not normal for the patient. Since her admission, she has not had any further seizure activity or focal deficits but remains somnolent, confused, and minimally verbal. Allergies: Coded Allergies: No Known Allergies (Unverified , 11/26/16) Medication History Scheduled Levetiracetam (Keppra), 500 MG ORAL EVERY 12 HOURS, (Reported) Permethrin* (Elimite*), 1 APPLIC TOPIC ONCE Propranolol Hcl* (Inderal La*), 60 MG ORAL DAILY, (Reported) Propranolol Hcl* (Inderal La*), 80 MG ORAL DAILY, (Reported) Zonisamide* (Zonegran*), 100 MG ORAL DAILY Scheduled PRN Ibuprofen* (Motrin*), 600 MG ORAL Q8H PRN for For Pain Patient History History Provided By: Patient - Largely non verbal, Family Member - has provided most of the history. Healthcare decision maker Resuscitation status Full Code Advanced Directive on File Review of Systems Constitutional: Denies: no symptoms, see HPI, chills, sweats, fever, malaise, weakness, other ENT: Denies: no symptoms, see HPI, ear pain, ear discharge, nose pain, nose congestion, throat pain, throat swelling, mouth pain, hearing loss, nasal discharge, other Respiratory: Denies: no symptoms, see HPI, cough, orthopnea, shortness of breath, stridor, wheezing, HUERTA, sputum, other Musculoskeletal: Denies: no symptoms, see HPI, back pain, gout, joint pain, joint swelling, muscle pain, muscle stiffness, other Skin: Denies: no symptoms, see HPI, rash, change in color, change in hair/nails , dryness, lesions, other Psychiatric: Denies: no symptoms, see HPI, prior hx, anxiety, depressed feelings, emotional problems, SI, HI, hallucinations, other Neurological: Denies: no symptoms, see HPI, headache, numbness, paresthesia, seizure, tingling, tremors, focal weakness, syncope, dizziness, other ROS Narrative Although patient was able to follow commands she was still minimally verbal during exam. Physical Exam General Appearance: WD/WN, no apparent distress, lethargic - Slow to respond, slow to follow commands, difficulty retaining attention. Lines, tubes and drains: peripheral HEENT: normocephalic, atraumatic, anicteric, mucous membranes moist, PERRL, EOMI, supple, no JVD Neck: normal alignment, supple, normal inspection Respiratory/Chest: lungs clear, normal breath sounds, no respiratory distress Cardiovascular/Chest: normal peripheral pulses, normal rate, regular rhythm, no JVD Extremities: normal range of motion, normal inspection, no calf tenderness, normal capillary refill, non-pitting, no edema, no cyanosis Skin Exam: normal pigmentation, warm/dry, no diaphoresis Neurologic: hot roller II-XII grossly normal, no motor/sensory deficits, responsive - Limited verbal output., other Physical Exam Narrative Neurologic Exam Mental Status: awake, normal remote memory - Able to confirm epilepsy but not verbalize recent details of diagnosis/ treatment. , preserved visuospatial function Speech: no dysarthia - Verbal output is limited. Cranial Nerve II: fundus normal, visual cruz, no papilledema Cranial Nerves III, IV, : PERRLA, EOMI Cranial Nerve V: normal facial sensations Cranial Nerve VII: no facial asymmetry, other - Inappropriate affect with some unprovoked laughter followed by flattened affect and responses. Cranial Nerve VIII: normal hearing Cranial Nerve IX: normal palate elevation Cranial Nerve X: no voice hoarseness Cranial Nerve XI: SCM symmetric Cranial Nerve XII: tongue midline Motor System: normal muscle tone, strength 5/5, no involuntary movement, no muscle wasting Sensory: normal light touch, normal position sense Coordination: normal finger to nose bilaterally, normal heel to thomas bilaterally Stance: normal Gait: stable, normal regular Last 24 Hour Vital Signs Date Time Temp Pulse Resp B/P (MAP) Pulse Ox O2 Delivery O2 Flow Rate FiO2 07/30/18 16:00 98.1 78 18 115/74 (88) 97 07/30/18 12:00 99.1 80 19 117/79 (92) 97 07/30/18 09:00 Room Air 07/30/18 08:00 98.6 104 19 110/82 (91) 97 104 07/30/18 06:01 Room Air 07/30/18 04:32 98.1 82 16 126/77 (93) 96 07/30/18 02:00 98.0 86 17 129/82 (98) 96 07/30/18 01:40 98.0 86 17 129/82 96 Room Air 07/30/18 00:00 98.0 86 17 129/82 (98) 96 07/29/18 21:41 90 17 Room Air 07/29/18 21:41 98.2 98 17 124/88 100 Room Air 07/29/18 21:06 98.2 90 17 124/88 100 Room Air Intake and Output 07/29/18 07/30/18 19:00 07:00 Intake Total 240 ml Balance 240 ml Intake Oral 240 ml # Voids 1 Laboratory Tests Test 07/29/18 21:20 07/29/18 22:30 07/30/18 05:45 White Blood Count 8.1 K/UL (4.8-10.8) 7.6 K/UL (4.8-10.8) Red Blood Count 4.59 M/UL (4.20-5.40) 4.43 M/UL (4.20-5.40) Hemoglobin 13.7 G/DL (12.0-16.0) 13.3 G/DL (12.0-16.0) Hematocrit 41.3 % (37.0-47.0) 39.9 % (37.0-47.0) Mean Corpuscular Volume 90 FL (80-99) 90 FL (80-99) Mean Corpuscular Hemoglobin 29.9 PG (27.0-31.0) 30.1 PG (27.0-31.0) Mean Corpuscular Hemoglobin Concent 33.2 G/DL (32.0-36.0) 33.5 G/DL (32.0-36.0) Red Cell Distribution Width 11.1 % (11.6-14.8) L 11.5 % (11.6-14.8) L Platelet Count 256 K/UL (150-450) 257 K/UL (150-450) Mean Platelet Volume 7.9 FL (6.5-10.1) 8.5 FL (6.5-10.1) Neutrophils (%) (Auto) 67.7 % (45.0-75.0) 76.9 % (45.0-75.0) H Lymphocytes (%) (Auto) 23.7 % (20.0-45.0) 16.3 % (20.0-45.0) L Monocytes (%) (Auto) 6.2 % (1.0-10.0) 5.9 % (1.0-10.0) Eosinophils (%) (Auto) 1.6 % (0.0-3.0) 0.5 % (0.0-3.0) Basophils (%) (Auto) 0.9 % (0.0-2.0) 0.5 % (0.0-2.0) Urine Color Pale yellow Urine Appearance Slightly cloudy Urine pH 6.5 (4.5-8.0) Urine Specific [place] 1.010 (1.005-1.035) Urine Protein Negative (NEGATIVE) Urine Glucose (UA) Negative (NEGATIVE) Urine Ketones 3+ (NEGATIVE) H Urine Blood Negative (NEGATIVE) Urine Nitrite Positive (NEGATIVE) H Urine Bilirubin Negative (NEGATIVE) Urine Urobilinogen Normal MG/DL (0.0-1.0) Urine Leukocyte Esterase 1+ (NEGATIVE) H Urine RBC 2-4 /HPF (0 - 2) H Urine WBC 5-10 /HPF (0 - 2) H Urine Squamous Epithelial Cells Moderate /LPF (NONE/OCC) H Urine Bacteria Many /HPF (NONE) H Urine HCG, Qualitative Negative (NEGATIVE) Sodium Level 140 MMOL/L (136-145) 140 MMOL/L (136-145) Potassium Level 4.0 MMOL/L (3.5-5.1) 3.9 MMOL/L (3.5-5.1) Chloride Level 103 MMOL/L (98-107) 105 MMOL/L (98-107) Carbon Dioxide Level 27 MMOL/L (21-32) 26 MMOL/L (21-32) Anion Gap 10 mmol/L (5-15) 10 mmol/L (5-15) Blood Urea Nitrogen 8 mg/dL (7-18) 9 mg/dL (7-18) Creatinine 0.8 MG/DL (0.55-1.30) 0.7 MG/DL (0.55-1.30) Estimat Glomerular Filtration Rate > 60 mL/min (>60) > 60 mL/min (>60) Glucose Level 103 MG/DL (74-106) 124 MG/DL (74-106) H Calcium Level 9.6 MG/DL (8.5-10.1) 9.3 MG/DL (8.5-10.1) Total Bilirubin 0.5 MG/DL (0.2-1.0) 0.4 MG/DL (0.2-1.0) Aspartate Amino Transf (AST/SGOT) 15 U/L (15-37) 14 U/L (15-37) L Alanine Aminotransferase (ALT/SGPT) 17 U/L (12-78) 18 U/L (12-78) Alkaline Phosphatase 73 U/L (46-116) 64 U/L (46-116) Total Protein 7.9 G/DL (6.4-8.2) 7.3 G/DL (6.4-8.2) Albumin 4.3 G/DL (3.4-5.0) 4.0 G/DL (3.4-5.0) Globulin 3.6 g/dL 3.3 g/dL Albumin/Globulin Ratio 1.2 (1.0-2.7) 1.2 (1.0-2.7) Salicylates Level 0.2 ug/mL (2.8-20) L Urine Opiates Screen Negative (NEGATIVE) Acetaminophen Level < 2 MCG/ML (10-30) L Urine Barbiturates Screen Negative (NEGATIVE) Phenytoin (Dilantin) Level < 0.5 ug/mL (10-20) L Phencyclidine (PCP) Screen Negative (NEGATIVE) Urine Amphetamines Screen Negative (NEGATIVE) Urine Benzodiazepines Screen Negative (NEGATIVE) Urine Cocaine Screen Negative (NEGATIVE) Urine Marijuana (THC) Screen Negative (NEGATIVE) Serum Alcohol < 3 mg/dL Lactic Acid Level 1.00 mmol/L (0.4-2.0) Height (Feet): 5 Height (Inches): 3.00 Weight (Pounds): 120 Medications Current Medications Medications (Trade) Dose Ordered Sig/Herberth Route PRN Reason Start Time Stop Time Status Last Admin Dose Admin Acetaminophen (Tylenol) 650 mg Q4H PRN ORAL Mild Pain/Temp > 100.5 07/30/18 03:00 08/29/18 02:59 Ceftriaxone Sodium 1 gm/ Dextrose 55 ml @ 110 mls/hr Q24H IVPB 07/30/18 22:00 08/02/18 21:59 Dextrose/Sodium Chloride 1,000 ml @ 100 mls/hr Q10H IV 07/30/18 03:00 08/29/18 02:59 07/30/18 14:49 Heparin Sodium (Porcine) (Heparin 5000 units/ml) 5,000 units EVERY 12 HOURS SUBQ 07/30/18 09:00 08/29/18 08:59 07/30/18 08:58 Levetiracetam (Keppra) 500 mg Q12HR ORAL 07/30/18 21:00 08/29/18 20:59 Lorazepam (Ativan 2mg/ml 1ml) 2 mg Q5M PRN IV For Seizures 07/30/18 04:15 08/06/18 02:59 Pantoprazole (Protonix) 40 mg DAILY IVP 07/30/18 09:00 08/29/18 08:59 07/30/18 08:54 Propranolol HCl (Inderal) 60 mg DAILY ORAL 07/31/18 09:00 08/30/18 08:59 Zonisamide (Zonegran) 100 mg DAILY ORAL 07/31/18 09:00 08/30/18 08:59 Assessment/Plan Problem List: (1) Encephalopathy ICD Codes: G93.40 - Encephalopathy, unspecified SNOMED: 18690960 (2) Seizure disorder ICD Codes: G40.909 - Epilepsy, unspecified, not intractable, without status epilepticus SNOMED: 640955519 (3) Altered mental status ICD Codes: R41.82 - Altered mental status, unspecified SNOMED: 371507874 Qualifiers: Qualified Codes: R40.4 - Transient alteration of awareness (4) UTI (urinary tract infection) ICD Codes: N39.0 - Urinary tract infection, site not specified SNOMED: 98430404 Qualifiers: Qualified Codes: N39.0 - Urinary tract infection, site not specified Status: doing well, stable - No other signs or symptoms of seizure, ambulating well Status Narrative 22 year old female presenting with altered mental status on 07/29/18 after approximately 4 seizures on prior evening as reported by . Her reported patient staring out into space throughout the day, appearing to be confused and was non-verbal upon admission. He reports that this seizure activity was not normal for the patient. Since her admission, she has not had any further seizure activity or focal deficits. Her toxicology screen was negative for drugs or alcohol however, she remains slow to respond and minimally verbal. Patient was reportedly taking medication for seizures, but length of treatment/ diagnosis are unknown as she is unable to contribute to her own history today despite being able to follow verbal commands. Assessment/Plan Continue Zonisamide 500mg QD + Keppra 500mg BID Q4 Neuro Checks Psychiatry consultation is appreciated Outpatient EEG if seizure symptoms continue. Consider inpatient if any observed seizure activity. Lorazepam PRN for visible seizure activity. Will obtain further history regarding patient's diagnosis of Epilepsy from her tomorrow. Objective Last 24 Hour Vital Signs Date Time Temp Pulse Resp B/P (MAP) Pulse Ox O2 Delivery O2 Flow Rate FiO2 07/31/18 00:00 98.5 83 18 106/70 (82) 96 07/30/18 21:00 Room Air 07/30/18 20:00 98.1 86 18 104/63 (77) 96 07/30/18 16:00 98.1 78 18 115/74 (88) 97 07/30/18 12:00 99.1 80 19 117/79 (92) 97 07/30/18 09:00 Room Air 07/30/18 08:00 98.6 104 19 110/82 (91) 97 104 07/30/18 06:01 Room Air 07/30/18 04:32 98.1 82 16 126/77 (93) 96 07/30/18 02:00 98.0 86 17 129/82 (98) 96 Intake and Output 07/30/18 07/31/18 19:00 07:00 Intake Total 100 ml 355 ml Balance 100 ml 355 ml IV Total 100 ml 355 ml # Voids 1 Laboratory Tests Test 07/30/18 05:45 White Blood Count 7.6 K/UL (4.8-10.8) Red Blood Count 4.43 M/UL (4.20-5.40) Hemoglobin 13.3 G/DL (12.0-16.0) Hematocrit 39.9 % (37.0-47.0) Mean Corpuscular Volume 90 FL (80-99) Mean Corpuscular Hemoglobin 30.1 PG (27.0-31.0) Mean Corpuscular Hemoglobin Concent 33.5 G/DL (32.0-36.0) Red Cell Distribution Width 11.5 % (11.6-14.8) L Platelet Count 257 K/UL (150-450) Mean Platelet Volume 8.5 FL (6.5-10.1) Neutrophils (%) (Auto) 76.9 % (45.0-75.0) H Lymphocytes (%) (Auto) 16.3 % (20.0-45.0) L Monocytes (%) (Auto) 5.9 % (1.0-10.0) Eosinophils (%) (Auto) 0.5 % (0.0-3.0) Basophils (%) (Auto) 0.5 % (0.0-2.0) Sodium Level 140 MMOL/L (136-145) Potassium Level 3.9 MMOL/L (3.5-5.1) Chloride Level 105 MMOL/L (98-107) Carbon Dioxide Level 26 MMOL/L (21-32) Anion Gap 10 mmol/L (5-15) Blood Urea Nitrogen 9 mg/dL (7-18) Creatinine 0.7 MG/DL (0.55-1.30) Estimat Glomerular Filtration Rate > 60 mL/min (>60) Glucose Level 124 MG/DL (74-106) H Calcium Level 9.3 MG/DL (8.5-10.1) Total Bilirubin 0.4 MG/DL (0.2-1.0) Aspartate Amino Transf (AST/SGOT) 14 U/L (15-37) L Alanine Aminotransferase (ALT/SGPT) 18 U/L (12-78) Alkaline Phosphatase 64 U/L (46-116) Total Protein 7.3 G/DL (6.4-8.2) Albumin 4.0 G/DL (3.4-5.0) Globulin 3.3 g/dL Albumin/Globulin Ratio 1.2 (1.0-2.7) Objective CT Brain W/O Contrast - negative for observable hemorrhage, infarct, edema, masses or other abnormality. Angela Garsia N.P. Jul 30, 2018 20:25
--- NOTE | 2018-07-30 20:45 | History and Physical Report ---
DATE OF ADMISSION: 07/30/2018 SOURCE OF INFORMATION: Patient and EMR. HISTORY OF PRESENT ILLNESS: The patient is a 22-year-old female. At baseline, she is AO X 3 The patient has a history of seizure disorder, had been reportedly suffer from four episodes of the seizure on Sunday and followed by admission to the emergency room. Initial vital signs are stable. The patient had witnessed by . She is a mother of one. ALLERGIES: NKDA. FAMILY HISTORY: Reviewed and noncontributory. SOCIAL HISTORY: The patient lives at home independent. She has one child. Denies history of illicit drug abuse, smoking, or alcohol abuse. The patient is . MEDICATIONS: Current hospital medications including, but not limited to ibuprofen, Keppra, and Zonegran. PAST MEDICAL HISTORY: Including but not limited to seizure disorder. PHYSICAL EXAMINATION: VITAL SIGNS: Blood pressure of 120/80, pulse oximetry 98% on room air, respiratory rate 18, and temperature 98.2. HEAD AND NECK: Atraumatic and normocephalic. CHEST: Clear to auscultation. HEART: S1, S2. Regular rate and rhythm. ABDOMEN: Soft. No organomegaly. MUSCULOSKELETAL: Positive for lack of coordination. NEUROLOGY: The patient is AO x1. The patient is not communicative verbally. LABORATORY AND DIAGNOSTIC DATA: Labs dated 07/29/2018 shows WBC 8.1, hemoglobin 13.7, and platelets 156,000. Sodium 140, potassium 4, BUN 8, and creatinine 0.8. AST and ALT are within normal limits. Urine is positive for WBC and positive for bacteria. ASSESSMENT: 1. Acute encephalopathy. 2. Postictal phase. 3. Seizures disorder, uncontrolled. 4. Abnormal blood sugar. 5. GI and DVT prophylaxis. 6. UTI. PLAN OF CARE: We will continue with home medications. We will check the SERUM KEPPRA LEVEL tomorrow. Continue with the seizure precautions. Neurology have been notified and consulted. Crissy Jeffers M.D. DR: LAINA JOB#: [id number] CC: TERESE
[2018-07-30] MEDS ORDERED: cefTRIAXone 1 GM in D5W 55 ML IVPB SCH (22:00)
[2018-07-31] VITALS: BP 106/70
[2018-07-31 04:00] VITALS: BP 115/79
[2018-07-31 05:35] LABS: BASOPHILS % (AUTO) 1.3 % (0.0-2.0); EOSINOPHILS % (AUTO) 1.8 % (0.0-3.0); HEMATOCRIT 34.8 % (37.0-47.0); HEMOGLOBIN 11.6 G/DL (12.0-16.0); MEAN CORPUSCULAR VOLUME 91 FL (80-99); MONOCYTES % (AUTO) 10.2 % (1.0-10.0); NEUTROPHILS % (AUTO) 45.7 % (45.0-75.0); PLATELET COUNT 223 K/UL (150-450); RED BLOOD COUNT 3.84 M/UL (4.20-5.40); RED CELL DISTRIBUTION WIDTH 11.4 % (11.6-14.8); WHITE BLOOD COUNT 5.9 K/UL (4.8-10.8)
[2018-07-31 05:47] LABS: ALANINE AMINOTRANSFERASE 14 U/L (12-78); ALBUMIN 3.1 G/DL (3.4-5.0); ALKALINE PHOSPHATASE 56 U/L (46-116); ANION GAP 7 mmol/L (5-15); ASPARTATE AMINO TRANSFERASE 10 U/L (15-37); BILIRUBIN,TOTAL 0.2 MG/DL (0.2-1.0); BLOOD UREA NITROGEN 6 mg/dL (7-18); CALCIUM 8.7 MG/DL (8.5-10.1); CARBON DIOXIDE 27 MMOL/L (21-32); CHLORIDE 109 MMOL/L (98-107); CREATININE 0.7 MG/DL (0.55-1.30); POTASSIUM 3.7 MMOL/L (3.5-5.1); SODIUM 143 MMOL/L (136-145)
--- NOTE | 2018-07-31 07:21 | NUR ---
NURSE NOTES: received report from LATISHA Arauz. patient in bed. alert. no respiratory distress noted. no c/o pain at this time. assisted patient to the toilet. IV on RAC patent. bed in the lowest position. alarm on. call light within reach. will continue to monitor.
--- NOTE | 2018-07-31 07:33 | NUR ---
HAND-OFF: Report given to ELSY Jimenez
--- NOTE | 2018-07-31 07:52 | NUR ---
NURSE NOTES: received report from LATISHA Kwong. patient in bed. alert. no respiratory distress noted. no c/o pain at this time. IV on RAC intact. running. bed in the lowest position. alarm on. call light within reach. will continue to monitor.
[2018-07-31 08:00] VITALS: BP 93/57
[2018-07-31] MEDS: Propranolol 40mg tab ORAL SCH ×2 (09:00→09:25)
[2018-07-31] MEDS: D5NS 1,000 ML IV SCH ×2 (09:25→19:00)
[2018-07-31] MEDS: Pantoprazole Inj IVP SCH (09:25)
[2018-07-31] MEDS: Heparin 5000 units/ml inj SUBQ SCH (09:26)
--- NOTE | 2018-07-31 10:33 | General Progress Note ---
Assessment/Plan Assessment/Plan S: comfortable O: still confused, but awake, limited wordings in communication PHYSICAL EXAMINATION: HEAD AND NECK: Atraumatic and normocephalic. CHEST: Clear to auscultation.HEART: S1, S2. Regular rate and rhythm. ABDOMEN: Soft. No organomegaly.MUSCULOSKELETAL: Positive for lack of coordination. NEUROLOGY: The patient is AO x1. The patient is not communicative verbally. Meds: are reviewed and reconciled in the chart ASSESSMENT: 1. Acute encephalopathy. 2. Postictal phase. 3. Seizures disorder, uncontrolled. 4. Abnormal blood sugar. 5. GI and DVT prophylaxis. 6. UTI. PLAN OF CARE: Notes from Neuro reviewed current management Subjective Allergies: Coded Allergies: No Known Allergies (Unverified , 11/26/16) Objective Last 24 Hour Vital Signs Date Time Temp Pulse Resp B/P (MAP) Pulse Ox O2 Delivery O2 Flow Rate FiO2 07/31/18 09:00 80 93/57 07/31/18 08:00 98.7 80 18 93/57 (69) 99 07/31/18 04:00 98.1 82 18 115/79 (91) 97 07/31/18 00:00 98.5 83 18 106/70 (82) 96 07/30/18 21:00 Room Air 07/30/18 20:00 98.1 86 18 104/63 (77) 96 07/30/18 16:00 98.1 78 18 115/74 (88) 97 07/30/18 12:00 99.1 80 19 117/79 (92) 97 Intake and Output 07/30/18 07/31/18 18:59 06:59 Intake Total 1055 ml Balance 1055 ml IV Total 1055 ml # Voids 6 Laboratory Tests 07/31/18 05:10: White Blood Count 5.9, Red Blood Count 3.84L, Hemoglobin 11.6L, Hematocrit 34.8L , Mean Corpuscular Volume 91, Mean Corpuscular Hemoglobin 30.2, Mean Corpuscular Hemoglobin Concent 33.4, Red Cell Distribution Width 11.4L, Platelet Count 223, Mean Platelet Volume 7.7, Neutrophils (%) (Auto) 45.7, Lymphocytes (%) (Auto) 41.0, Monocytes (%) (Auto) 10.2H, Eosinophils (%) (Auto) 1.8, Basophils (%) (Auto) 1.3, Sodium Level 143, Potassium Level 3.7, Chloride Level 109H, Carbon Dioxide Level 27, Anion Gap 7, Blood Urea Nitrogen 6L, Creatinine 0.7, Estimat Glomerular Filtration Rate > 60, Glucose Level 105, Calcium Level 8.7, Total Bilirubin 0.2, Aspartate Amino Transf (AST/SGOT) 10L, Alanine Aminotransferase (ALT/SGPT) 14, Alkaline Phosphatase 56, Total Protein 6.1L, Albumin 3.1L, Globulin 3.0, Albumin/Globulin Ratio 1.0, Levetiracetam ( Keppra) Level [Pending] Height (Feet): 5 Height (Inches): 3.00 Weight (Pounds): 119 Crissy Jeffers MD Jul 31, 2018 10:33
[2018-07-31 12:00] VITALS: BP 102/68
--- NOTE | 2018-07-31 12:22 | Neurology Progress Note ---
Interim History Interim History ROS Limited/Unobtainable: Yes Complaints: Admission for Seizure Events: 1. UTI 2. AMS - Prolonged post ictal phase. Interim History 22 year old female presenting with complaints of altered mental status brought in following 4 seizures (for which she is diagnosed and takes medication) and ongoing confusion the following day as noted by her . She has not been minimally verbal throughout her admission thus far but can follow commands, ambulate and answer some questions appropriately. She is however not oriented to her time, place, or situation. History of present illness is significantly limited as the patient has been largely nonverbal during most exams. Review of Systems Neuro Review of Systems ROS unable to be obtained as patient was discharged today. Objective Physical Exam Last Vital Signs Date Time Temp Pulse Resp B/P (MAP) Pulse Ox O2 Delivery O2 Flow Rate FiO2 07/31/18 09:00 80 93/57 07/31/18 09:00 Room Air 07/31/18 08:00 98.7 18 99 Laboratory Tests Test 07/31/18 05:10 White Blood Count 5.9 K/UL (4.8-10.8) Red Blood Count 3.84 M/UL (4.20-5.40) L Hemoglobin 11.6 G/DL (12.0-16.0) L Hematocrit 34.8 % (37.0-47.0) L Mean Corpuscular Volume 91 FL (80-99) Mean Corpuscular Hemoglobin 30.2 PG (27.0-31.0) Mean Corpuscular Hemoglobin Concent 33.4 G/DL (32.0-36.0) Red Cell Distribution Width 11.4 % (11.6-14.8) L Platelet Count 223 K/UL (150-450) Mean Platelet Volume 7.7 FL (6.5-10.1) Neutrophils (%) (Auto) 45.7 % (45.0-75.0) Lymphocytes (%) (Auto) 41.0 % (20.0-45.0) Monocytes (%) (Auto) 10.2 % (1.0-10.0) H Eosinophils (%) (Auto) 1.8 % (0.0-3.0) Basophils (%) (Auto) 1.3 % (0.0-2.0) Sodium Level 143 MMOL/L (136-145) Potassium Level 3.7 MMOL/L (3.5-5.1) Chloride Level 109 MMOL/L (98-107) H Carbon Dioxide Level 27 MMOL/L (21-32) Anion Gap 7 mmol/L (5-15) Blood Urea Nitrogen 6 mg/dL (7-18) L Creatinine 0.7 MG/DL (0.55-1.30) Estimat Glomerular Filtration Rate > 60 mL/min (>60) Glucose Level 105 MG/DL (74-106) Calcium Level 8.7 MG/DL (8.5-10.1) Total Bilirubin 0.2 MG/DL (0.2-1.0) Aspartate Amino Transf (AST/SGOT) 10 U/L (15-37) L Alanine Aminotransferase (ALT/SGPT) 14 U/L (12-78) Alkaline Phosphatase 56 U/L (46-116) Total Protein 6.1 G/DL (6.4-8.2) L Albumin 3.1 G/DL (3.4-5.0) L Globulin 3.0 g/dL Albumin/Globulin Ratio 1.0 (1.0-2.7) Levetiracetam (Keppra) Level Pending Neurologic Exam Objective NO PHYSICAL ASSESSMENT PERFORMED PATIENT WAS TRANSFERRED TO [facility] DUE TO CAPITATED HOSPITAL INSURANCE. Impression/Recommendations Problems: (1) Encephalopathy (2) Seizure disorder (3) Altered mental status (4) UTI (urinary tract infection) Status: doing well, stable - No other signs or symptoms of seizure, ambulating well Recommendations Problems: (1) Seizure disorder (2) UTI (urinary tract infection) (3) Altered mental status Status: stable, ambulating well Diagnostic Impression Prolonged Post Ictal Phase vs Psychogenic cause - Non focal findings and limited responses appropriate but unable to obtain as patient would not or was not able to answer all questions- she could not articulate which. Recommendations Continue Zonisamide/ Keppra Q4 Neuro Checks Consider consulting [facility] Outpatient EEG NEUROLOGY FOLLOW UP OUTPATIENT Angela Garsia N.P. Jul 31, 2018 12:22
--- NOTE | 2018-07-31 14:40 | NUR ---
DISCHARGE PLANNING RECEIVED CALL FROM [facility] ASKING IF PATIENT IS STABLE FOR TRANSFER [facility] CALLED AND SPOKE WITH DR MULLEN REGARDING TRANSFER AND HE STATED PATIENT WAS STABLE TO TRANSFER TO CONTRACTED FACILITY TRANSFER/DISCHARGE ORDER ENTERED UNDER OTHER NURSING ORDERS WAITING FOR MD TO MD CONVERSATION TO OCCUR
[2018-07-31 16:00] VITALS: BP 126/73
--- NOTE | 2018-07-31 17:22 | NUR ---
ACCOUNTING MANAGER CONTROLLER NOTES RECEIVED CALL FROM [facility], PT CAPITATATED TO [facility]. PT ACCEPTED BY DR BALLESTEROS ROOM 1002 BED B . NURSE TO CALL REPORT TO [phone]. [facility] TO TRANSPORT PT WITH THE AUTH NUMBER [id number] ETA [id number].
[2018-07-31] MEDS ORDERED: PROTONIX IV40 MG IV (18:12)
--- NOTE | 2018-07-31 18:25 | NUR ---
NURSE NOTES: given report to [facility] [place]. spoke to LATISHA JONES. transportation will be arrived at 1830
--- NOTE | 2018-07-31 19:19 | NUR ---
HAND-OFF: Report given to Isacc Marquez RN.
--- NOTE | 2018-07-31 19:45 | NUR ---
NURSE NOTES: Received report from am nurse. Received pt lying in bed, AOX4, denies any pain, no distress noted. Safety measures maintained. Bed in lowest position and locked, side rails up x 2, call light within reach. Father at bedside. Awaiting for ambulance transport transfer to [facility] Room 1002 bed B.
--- NOTE | 2018-07-31 20:05 | NUR ---
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 Pt in stable condition. No IV access noted. All belongings taken. Report given to transporter. Pt is going to Room 1002 B. Per am nurse, report already given to James RN at .
[2018-07-31] MEDS ORDERED: Tubing IV Secondary IV ONE (20:24)
[2018-07-31] MEDS ORDERED: D5NS 1000ml IV ONE (20:24)
--- NOTE | 2018-08-01 12:52 | Discharge Summary ---
Discharge Summary Discharge Summary _ DATE OF ADMISSION: 07/30/2018 DATE OF DISCHARGE: 07/31/2018 DISCHARGED BY: Dr. Crissy Jeffers CONSULTANTS: Dr. Jamel Samuels BRIEF HOSPITAL COURSE: Patient is a 22-year-old female, who is at baseline is awake, oriented x3. The patient has a history of seizure disorder, and had reportedly suffered from 4 episodes of seizure at home. She had altered mental status and reported that throughout the day patient appeared confused and was staring out into space. There was no reports of vomiting or diarrhea. She was then transported to ED for further evaluation. On evaluation at the ED, patient appeared confused. Patient was not following commands, however there was no obvious focal deficit. History was limited due to patient's mental status. Blood work was unremarkable. Urinalysis with positive nitrite, 1+ leukocyte esterase, 2-4 RBC, 5-10 WBC and many bacteria. Urine hCG negative. Urine drug screen was negative. Dilantin level was less than 0.5. EKG was in normal sinus rhythm. Head CT was negative. She was then admitted for evaluation of encephalopathy and seizure disorder. Neuro evaluation was done. She was placed on seizure precautions. She was continued on home medications. She was given Keppra 500 mg every 12 hours and Zonegran 100 mg daily. Keppra blood levels still pending. She was given ceftriaxone for urine infection. Urine culture showed growth of pansensitive E. coli. She was eventually transferred to [facility]. FINAL DIAGNOSES: Seizure disorder, uncontrolled Acute metabolic encephalopathy E. coli UTI postictal phase Abnormal blood sugar DISPOSITION: Patient was transferred to a contracted hospital DISCHARGE MEDICATIONS: Refer to Discharge Medication List. I have been assigned to complete a discharge summary on this account, I was not involved with the patient's management. Leesa Haney NP Aug 01, 2018 12:52
== END 2018-07-31 20:25 | disposition critical access hospital, planned readmission (94) | DRG 53 ==
LOC: EMR 21:12 → 3E 07-30 00:10 → EDBEDREQ 07-30 00:30 → 3E 07-30 01:48
DX: G40.909 Epilepsy, unspecified, not intractable, without status epilepticus (principal); G93.41 Metabolic encephalopathy; N39.0 Urinary tract infection, site not specified; B96.20 Unspecified Escherichia coli [E. coli] as the cause of diseases classified elsewhere; R73.09 Other abnormal glucose
CPT/HCPCS: 36415; 70450; 80053; 80185; 80299; 80307; 80329; 81003; 81025; 83605; 85025; 87040; 87086; 87181; 96365; 99285

== ENCOUNTER 2018-09-10 07:12 | Emergency (ER) | payer MEDICAID, OTHER ==
[~2018-09-10] VITALS: Ht 157.5 cm; Wt 53.5 kg
[~2018-09-10 07:12] MED LIST changes: +INDERAL LA60 MG ORAL; +INDERAL LA80 MG ORAL; +PROTONIX IV40 MG IV
[2018-09-10] MEDS ORDERED: CARISOPRODOL350 MG ORAL (07:23)
--- NOTE | 2018-09-10 07:24 | NUR ---
ED Nurse Note: Pt came into the ER w/ complaints of difficulty breathing since 0500 this morning. Pt sating at 100% on RA in the ED. Pt also stated that she has had a seizure this past Sunday and Sunday. Pt denies having pain. Pt takes carisprodol for seizure. Pt has a hx of seizures. Pt is A + O x4. Ambulatory. Skin warm to touch.
[2018-09-10 07:27] VITALS: BP 104/69
[2018-09-10 07:58] LABS: BASOPHILS % (AUTO) 1.1 % (0.0-2.0); EOSINOPHILS % (AUTO) 2.8 % (0.0-3.0); HEMATOCRIT 39.7 % (37.0-47.0); HEMOGLOBIN 13.3 G/DL (12.0-16.0); LYMPHOCYTES % (AUTO) 37.2 % (20.0-45.0); MEAN CORPUSCULAR VOLUME 89 FL (80-99); MONOCYTES % (AUTO) 7.4 % (1.0-10.0); NEUTROPHILS % (AUTO) 51.5 % (45.0-75.0); PLATELET COUNT 245 K/UL (150-450); RED BLOOD COUNT 4.48 M/UL (4.20-5.40); RED CELL DISTRIBUTION WIDTH 11.9 % (11.6-14.8); WHITE BLOOD COUNT 5.3 K/UL (4.8-10.8)
[2018-09-10 08:11] LABS: ANION GAP 10 mmol/L (5-15); BLOOD UREA NITROGEN 10 mg/dL (7-18); CALCIUM 8.7 MG/DL (8.5-10.1); CARBON DIOXIDE 24 MMOL/L (21-32); CHLORIDE 104 MMOL/L (98-107); CREATININE 0.7 MG/DL (0.55-1.30); POTASSIUM 3.7 MMOL/L (3.5-5.1); SODIUM 138 MMOL/L (136-145)
[2018-09-10 08:15] LABS: APPEARANCE,URINE CLEAR; BILIRUBIN, URINE NEGATIVE (NEGATIVE); COLOR,URINE PALE YELLOW; GLUCOSE, URINE (UA) NEGATIVE (NEGATIVE); KETONES,URINE NEGATIVE (NEGATIVE); LEUKOCYTE ESTERASE ,URINE NEGATIVE (NEGATIVE); NITRITE,URINE NEGATIVE (NEGATIVE); PH,URINE 6 (4.5-8.0); PROTEIN,URINE NEGATIVE (NEGATIVE); UROBILINOGEN,URINE NORMAL MG/DL (0.0-1.0)
[2018-09-10 08:16] LABS: ALANINE AMINOTRANSFERASE 22 U/L (12-78); ALBUMIN 3.8 G/DL (3.4-5.0); ALBUMIN/GLOBULIN RATIO 1.1 (1.0-2.7); ALKALINE PHOSPHATASE 75 U/L (46-116); ASPARTATE AMINO TRANSFERASE 15 U/L (15-37); BILIRUBIN,TOTAL 0.5 MG/DL (0.2-1.0)
--- NOTE | 2018-09-10 08:19 | Emergency Room Report ---
History of Present Illness General Chief Complaint: Seizure Source: Patient Present Illness HPI 22-year-old female presents ED for evaluation. Patient states that she had a seizure on Sunday and Sunday. States that she is here today because she felt that her blood pressure was high. Patient did not check her blood pressure but states that she felt short of breath. Blood pressure in triage 104/69. Patient notes history of seizures. Takes Keppra and Zonegran. States she is compliant with her medications. Denies alcohol or drug use. Denies chest pain. No other aggravating relieving factors. Denies any other associated symptoms Allergies: Coded Allergies: No Known Allergies (Unverified , 11/26/16) Patient History Past Medical History: seizures Past Surgical History: none Pertinent Family History: none Social History: Denies: smoking, alcohol use, drug use Last Menstrual Period: 08/15/18 Now: No Immunizations: UTD Reviewed Nursing Documentation: PMH: Agreed; PSxH: Agreed Nursing Documentation-PMH Past Medical History: No History, Except For Hx Cardiac Problems: No Hx Cancer: No Hx Gastrointestinal Problems: No Hx Neurological Problems: Yes Hx Seizures: Yes Review of Systems All Other Systems: negative except mentioned in HPI Physical Exam Vital Signs Date Time Temp Pulse Resp B/P (MAP) Pulse Ox O2 Delivery O2 Flow Rate FiO2 09/10/18 07:20 97.9 78 15 104/69 100 Room Air 09/10/18 07:27 100 Sp02 EP Interpretation: reviewed, normal General Appearance: no apparent distress, alert, GCS 15, non-toxic Head: normocephalic, atraumatic Eyes: bilateral eye normal inspection, bilateral eye PERRL ENT: hearing grossly normal, normal pharynx, no angioedema, normal voice Neck: full range of motion, supple/symm/no masses Respiratory: chest non-tender, lungs clear, normal breath sounds, speaking full sentences Cardiovascular #1: regular rate, rhythm, no edema Cardiovascular #2: 2+ carotid (R), 2+ carotid (L), 2+ radial (R), 2+ radial (L) , 2+ dorsalis pedis (R), 2+ dorsalis pedis (L) Gastrointestinal: normal bowel sounds, non tender, soft, non-distended, no guarding, no rebound Rectal: deferred Genitourinary: normal inspection, no CVA tenderness Musculoskeletal: back normal, gait/station normal, normal range of motion, non- tender Neurologic: alert, oriented x3, responsive, motor strength/tone normal, sensory intact, speech normal Psychiatric: judgement/insight normal, memory normal, mood/affect normal, no suicidal/homicidal ideation Reflexes: 3+ bicep (R), 3+ bicep (L), 3+ tricep (R), 3+ tricep (L), 3+ knee (R) , 3+ knee (L) Skin: normal color, no rash, warm/dry, well hydrated Lymphatic: no adenopathy Medical Decision Making Diagnostic Impression: Primary Impression: Seizure disorder Additional Impression: Anxiety ER Course Hospital Course 22 yo F presents c/o seizure. states her BP is high, also c/o SOB Differential diagnosis includes- breakthrough seizure, alcohol abuse, noncompliance with medication Clinical course Patient placed on stretcher. Initial history physical exam reveals female in no acute distress. Patient appears anxious. Patient has no focal neurological deficits. Cranial nerves II through XII intact. No nuchal rigidity. Lungs clear. Remainder of exam unremarkable. BP is 104/69. I asked patient had an she know that her blood pressure was high. She states because she felt short of breath. I explained that that is not an accurate indication of a high blood pressure. Patient has no history of hypertension. Labs-electrolytes okay, no leukocytosis, hemoglobin/hematocrit stable. Utox negative EKG - NSR, no acute ischemic changes interpreted by me CXR - no acute process Patient presents pill bottles with soma and propranolol. I asked patient why she is taking these medications. She states "for seizures". During ED course vital stable. BP normal. O2 sats 100% on room air. Discussed findings with patient. I explained that soma and propranolol are not seizure medications. Patient states then she does not know why she was prescribed these medications. I global regulatory affairs manager propranolol has indications for hypertension and for anxiety. Patient does appear anxious and could be the reason for this medication. I told patient that she needs to talk to her PMD and get better clarification as to why she is taking these medications Patient states that she is unclear if she has refills of her Keppra and Zonegram at home. We'll provide refills. Safe for discharge with close outpatient follow-up. States she has a PMD and her neurologist Diagnosis - seizure, anxiety stable and discharged to home with rx with Rx Ashtyn Timmons. Followup with PMD. Return to ED if symptoms recur or worsen Labs Test 09/10/18 07:43 White Blood Count 5.3 K/UL (4.8-10.8) Red Blood Count 4.48 M/UL (4.20-5.40) Hemoglobin 13.3 G/DL (12.0-16.0) Hematocrit 39.7 % (37.0-47.0) Mean Corpuscular Volume 89 FL (80-99) Mean Corpuscular Hemoglobin 29.8 PG (27.0-31.0) Mean Corpuscular Hemoglobin Concent 33.6 G/DL (32.0-36.0) Red Cell Distribution Width 11.9 % (11.6-14.8) Platelet Count 245 K/UL (150-450) Mean Platelet Volume 7.3 FL (6.5-10.1) Neutrophils (%) (Auto) 51.5 % (45.0-75.0) Lymphocytes (%) (Auto) 37.2 % (20.0-45.0) Monocytes (%) (Auto) 7.4 % (1.0-10.0) Eosinophils (%) (Auto) 2.8 % (0.0-3.0) Basophils (%) (Auto) 1.1 % (0.0-2.0) Urine Color Pale yellow Urine Appearance Clear Urine pH 6 (4.5-8.0) Urine Specific [place] 1.015 (1.005-1.035) Urine Protein Negative (NEGATIVE) Urine Glucose (UA) Negative (NEGATIVE) Urine Ketones Negative (NEGATIVE) Urine Blood Negative (NEGATIVE) Urine Nitrite Negative (NEGATIVE) Urine Bilirubin Negative (NEGATIVE) Urine Urobilinogen Normal MG/DL (0.0-1.0) Urine Leukocyte Esterase Negative (NEGATIVE) Urine HCG, Qualitative Negative (NEGATIVE) Sodium Level 138 MMOL/L (136-145) Potassium Level 3.7 MMOL/L (3.5-5.1) Chloride Level 104 MMOL/L (98-107) Carbon Dioxide Level 24 MMOL/L (21-32) Anion Gap 10 mmol/L (5-15) Blood Urea Nitrogen 10 mg/dL (7-18) Creatinine 0.7 MG/DL (0.55-1.30) Estimat Glomerular Filtration Rate > 60 mL/min (>60) Glucose Level 87 MG/DL (74-106) Calcium Level 8.7 MG/DL (8.5-10.1) Total Bilirubin 0.5 MG/DL (0.2-1.0) Aspartate Amino Transf (AST/SGOT) 15 U/L (15-37) Alanine Aminotransferase (ALT/SGPT) 22 U/L (12-78) Alkaline Phosphatase 75 U/L (46-116) Total Protein 7.2 G/DL (6.4-8.2) Albumin 3.8 G/DL (3.4-5.0) Globulin 3.4 g/dL Albumin/Globulin Ratio 1.1 (1.0-2.7) Salicylates Level 0.2 ug/mL (2.8-20) Urine Opiates Screen Negative (NEGATIVE) Acetaminophen Level < 2 MCG/ML (10-30) Urine Barbiturates Screen Negative (NEGATIVE) Phencyclidine (PCP) Screen Negative (NEGATIVE) Urine Amphetamines Screen Negative (NEGATIVE) Urine Benzodiazepines Screen Negative (NEGATIVE) Urine Cocaine Screen Negative (NEGATIVE) Urine Marijuana (THC) Screen Negative (NEGATIVE) Serum Alcohol < 3 mg/dL EKG Diagnostic Results Rate: normal Rhythm: NSR ST Segments: no acute changes ASA given to the pt in ED: No Rhythm Strip Diag. Results EP Interpretation: yes Rhythm: NSR, no PVC's, no ectopy Chest X-Ray Diagnostic Results Chest X-Ray Diagnostic Results : Chest X-Ray Ordered: Yes # of Views/Limited/Complete: 1 View Indication: Shortness of Breath EP Interpretation: Yes Interpretation: no consolidation, no effusion, no pneumothorax, no acute cardiopulmonary disease Impression: No acute disease Electronically Signed by: Electronically signed by Garth Kumar MD Last Vital Signs Date Time Temp Pulse Resp B/P (MAP) Pulse Ox O2 Delivery O2 Flow Rate FiO2 09/10/18 07:27 79 16 Room Air 100 09/10/18 07:27 98.0 104/69 100 Status: improved Disposition: HOME, SELF-CARE Condition: Stable Scripts Zonisamide* (ZONEGRAN*) 100 Mg Capsule 100 MG ORAL DAILY, #30 CAP 0 Refills Prov: Garth Kumar MD 09/10/18 Levetiracetam (KEPPRA) 500 Mg Tablet 500 MG ORAL EVERY 12 HOURS, #60 TAB 0 Refills Prov: Garth Kumar MD 09/10/18 Referrals: [facility],REFERRING (PCP) Garth Kumar MD Sep 10, 2018 08:19
--- NOTE | 2018-09-10 08:23 | NUR ---
ED Nurse Note: Notified radiology of xray order.
--- NOTE | 2018-09-10 08:27 | NUR ---
ED Nurse Note: Xray at the bedside.
[2018-09-10] MEDS ORDERED: ZONEGRAN100 MG ORAL (08:48)
[2018-09-10] MEDS ORDERED: KEPPRA500 M4 ORAL (08:48)
[2018-09-10 08:56] VITALS: BP 106/74
--- NOTE | 2018-09-10 08:57 | NUR ---
ER DISCHARGE NOTE: Patient is cleared to be discharged per ERMD, pt is aox4, on room air, with stable vital signs. pt was given dc and prescription instructions, pt was able to verbalize understanding, pt id band and iv site removed without complications. pt is able to ambulate with steady gait. pt took all belongings.
--- NOTE | 2018-09-10 09:06 | Diagnostic Imaging Report ---
Indication: Shortness of breath Technique: One view of the chest Comparison: none Findings: Lungs and pleural spaces are clear. Heart size is normal Impression: No acute process
--- NOTE | 2018-09-13 15:45 | Cardiology Report ---
APPROVED REPORT EKG Measurement Heart [id number] Normal sinus rhythm Rightward axis Borderline ECG
[2019-02-19] MEDS ORDERED: KEPPRA500 M4 ORAL (13:12)
== END 2018-09-10 08:57 | disposition home or self-care (01) ==
LOC: EMR 07:30
DX: G40.909 Epilepsy, unspecified, not intractable, without status epilepticus (principal); F41.9 Anxiety disorder, unspecified; R06.02 Shortness of breath
CPT/HCPCS: 36415; 71045; 80053; 80307; 81003; 81025; 82962; 85025; 93005; 99284; G0480; 80329

== ENCOUNTER 2018-09-19 10:30 | Emergency (ER) | payer OTHER ==
[~2018-09-19] VITALS: Ht 157.5 cm; Wt 53.5 kg
[~2018-09-19 10:30] MED LIST changes: +CARISOPRODOL350 MG ORAL
--- NOTE | 2018-09-19 10:41 | Emergency Room Report ---
History of Present Illness General Chief Complaint: Foot pain Present Illness HPI Patient is a 22-year-old female who presented after increased pain to the left foot and ankle. Patient had a recent fall downstairs. She reports of increased pain and swelling. Injury occurred 2 days prior to arrival. Patient had been able to ambulate with some pain. She reports having pain to the lateral aspect of the right foot as well as the ankle. Allergies: Coded Allergies: No Known Allergies (Unverified , 11/26/16) Patient History Reviewed Nursing Documentation: PMH: Agreed; PSxH: Agreed Nursing Documentation-PMH Hx Cardiac Problems: No Hx Cancer: No Hx Gastrointestinal Problems: No Hx Neurological Problems: Yes Hx Seizures: Yes Review of Systems All Other Systems: negative except mentioned in HPI Physical Exam General Appearance: well appearing, no apparent distress, alert, GCS 15 Head: normocephalic, atraumatic ENT: hearing grossly normal, normal voice Neck: full range of motion, supple Respiratory: no respiratory distress, speaking full sentences Cardiovascular #1: normal inspection Musculoskeletal: no calf tenderness, swelling - ankle and foot tenderness to lateral malleolus Neurologic: normal inspection, alert, oriented x3, responsive, normal gait Psychiatric: mood/affect normal Skin: no rash Lymphatic: other - bruising Medical Decision Making Diagnostic Impression: Primary Impression: Fibula fracture ER Course Patient presented for ankle pain. Differential diagnosis include was not limited to fracture, fracture, dislocation, sprain, Achilles tendon rupture among others. Because of complexity of patient's case imaging studies were ordered. Patient was noted to have a nondisplaced fibular fracture on x-ray imaging. Patient was given pain medications and it was placed in a splint. She was advised to follow-up with orthopedics. Patient was to return for any concerns. Status: improved Disposition: HOME, SELF-CARE Condition: Stable Scripts Ibuprofen* (MOTRIN*) 600 Mg Tablet 600 MG ORAL Q8H PRN for For Pain, #30 TAB 0 Refills Prov: Solomon Calloway MD 09/19/18 Hydrocodone Bit/Acetaminophen 5-325* (NORCO 5-325*) 1 Each Tablet 1 TAB ORAL Q6H PRN for For Pain, #20 TAB 0 Refills Prov: Solomon Calloway MD 09/19/18 Solomon Calloway MD September 19, 2018 10:41
[2018-09-19] MEDS ORDERED: KEPPRA1000 MG ORAL (10:44)
[2018-09-19] MEDS ORDERED: HYDROcodone/Acetamin 5/325 tab ORAL ONE (10:45)
--- NOTE | 2018-09-19 11:03 | NUR ---
ED Nurse Note:pt. came s/p fall on eda and right ankle pain and injury, swelling and bruising noted, x-ray was done, pain meds given
[2018-09-19] MEDS ORDERED: IBUPROFEN600 MG ORAL (11:27)
[2018-09-19] MEDS ORDERED: NORCO 5-325 TA1 EACH ORAL (11:27)
--- NOTE | 2018-09-19 11:53 | Diagnostic Imaging Report ---
Indication: Foot Pain Comparison: None Findings: 3 views of the right foot were obtained. There is generalized soft tissue swelling involving the foot, nonspecific in nature. There is no malalignment or acute fracture, soft tissue air or erosion identified. IMPRESSION: Soft tissue swelling.
--- NOTE | 2018-09-19 12:00 | NUR ---
ER DISCHARGE NOTE:splint was placed on injured leg and cratches provided Patient is cleared to be discharged per ERMD, pt is aox4, on room air, with stable vital signs. pt was given dc and prescription instructions, pt was able to verbalize understanding pt is able to ambulate with steady gait. pt took all belongings.
--- NOTE | 2018-09-19 16:31 | Diagnostic Imaging Report ---
Indication: ankle pain/trauma Comparison: None Findings: 3 views of the right ankle obtained. There is an acute nondisplaced fracture involving the lateral malleolus. The fracture is oblique. Soft tissue swelling noted laterally. There is no malalignment or additional fractures identified. IMPRESSION: Acute lateral malleolus fracture
[2018-09-19 17:30] VITALS: BP 100/65
[2019-02-19] MEDS ORDERED: KEPPRA500 M4 ORAL (13:12)
== END 2018-09-19 12:00 | disposition home or self-care (01) ==
LOC: EMR 11:38
DX: S82.61XA Displaced fracture of lateral malleolus of right fibula, initial encounter for closed fracture (principal); W10.9XXA Fall (on) (from) unspecified stairs and steps, initial encounter; Y92.9 Unspecified place or not applicable
CPT/HCPCS: 29515; 99284

== ENCOUNTER 2018-10-27 10:27 | Emergency (ER) | payer OTHER ==
[~2018-10-27] VITALS: Ht 157.5 cm; Wt 54.4 kg
[~2018-10-27 10:27] MED LIST changes: +KEPPRA1000 MG ORAL; +NORCO 5-325 TA1 EACH ORAL
[2018-10-27 10:40] VITALS: BP 127/82
--- NOTE | 2018-10-27 10:40 | NUR ---
ED Nurse Note: PT FROM HOME CAME IN DUE TO SEIZURE ACTIVITY ON HER BED AT 0200AM THIS MORNING, WITNESSED BY HER . PT UNABLE TO REMEMBER WHAT HAPPENED. PT TAKES KEPPRA 80MG AT HOME. PT IS AAO X4, AMBULATES WITH STEADY GAIT WITH NON LABORED BREATHING. DENIES CP BUT STATES SHE FEELS SHAKY. VSS.
--- NOTE | 2018-10-27 11:13 | NUR ---
ED Nurse Note: PT RESTING ON HER BED WITH NO DISTRESS. VSS. WILL CONTINUE TO ASSESS.
[2018-10-27] MEDS ORDERED: levETIRAcetam 500 MG in D5W 110 ML IV ONE (11:30)
[2018-10-27 11:53] LABS: APPEARANCE,URINE CLEAR; BILIRUBIN, URINE NEGATIVE (NEGATIVE); COLOR,URINE PALE YELLOW; GLUCOSE, URINE (UA) NEGATIVE (NEGATIVE); KETONES,URINE NEGATIVE (NEGATIVE); LEUKOCYTE ESTERASE ,URINE NEGATIVE (NEGATIVE); NITRITE,URINE NEGATIVE (NEGATIVE); PH,URINE 6 (4.5-8.0); PROTEIN,URINE NEGATIVE (NEGATIVE); UROBILINOGEN,URINE NORMAL MG/DL (0.0-1.0)
--- NOTE | 2018-10-27 11:55 | Emergency Room Report ---
History of Present Illness General Chief Complaint: Seizure Source: Patient Present Illness HPI Patient presents with having a witnessed seizure by her last night. She said she had a temperature of 102 this morning. In addition she has some right upper quadrant pain which is new for her. She denies any trauma or vomiting. She also denies cough sore throat rashes dysuria diarrhea oral trauma. She denies headache. The patient was drinking beer yesterday at her child's libertarian. She feels it's okay to drink Bhandari. She also supposedly takes Keppra. She says usually takes it at night. She reports that the dosages 80 mg. (After the brought medications. The 80 mg pill his propranolol XL. She apparently sneaks this medication. She has not been taking Keppra because it makes her too sleepy.) Allergies: Coded Allergies: No Known Allergies (Unverified , 11/26/16) Patient History Past Medical History: see triage record Social History: Reports: alcohol use Social History Narrative has children, Last Menstrual Period: 10/15/18 Reviewed Nursing Documentation: PMH: Agreed; PSxH: Agreed Nursing Documentation-PMH Hx Cardiac Problems: No Hx Cancer: No Hx Gastrointestinal Problems: No Hx Neurological Problems: Yes Hx Seizures: Yes Review of Systems All Other Systems: negative except mentioned in HPI Physical Exam Vital Signs Date Time Temp Pulse Resp B/P (MAP) Pulse Ox O2 Delivery O2 Flow Rate FiO2 10/27/18 10:30 98.1 83 19 119/77 (91) 98 Room Air Sp02 EP Interpretation: reviewed, normal General Appearance: well appearing, no apparent distress, GCS 15 Head: normocephalic Eyes: bilateral eye normal inspection, bilateral eye PERRL, bilateral eye EOMI ENT: normal pharynx, moist mucus membranes Neck: supple Respiratory: chest non-tender, lungs clear, normal breath sounds Cardiovascular #1: regular rate, rhythm Cardiovascular #2: 2+ radial (R) Gastrointestinal: normal inspection, normal bowel sounds, no mass, non- distended, no guarding, no rebound, tenderness - Right upper quadrant Genitourinary: no CVA tenderness Musculoskeletal: back normal, gait/station normal, normal range of motion Neurologic: alert, oriented x3, mimeographer III-XII nml as tested, motor strength/tone normal, DTRs symmetric, sensory intact, cerebellar normal, normal gait, speech normal Psychiatric: mood/affect normal - Poor insight, denial about alcohol being a problem Skin: normal inspection, warm/dry Medical Decision Making Diagnostic Impression: Primary Impression: Seizure Additional Impressions: Alcohol use Early stage of ER Course Patient presents after having a witnessed seizure by her last night. Allegedly there is a fever also. She also complains of right upper quadrant pain. Differential includes uncontrolled seizures, viral syndrome, alcohol use and withdrawal, electrolyte abnormality, hepatitis, peptic ulcer disease, angry [place], gallbladder disease amongst others. Patient will be evaluated with EKG, chest x-ray and labs. She is a nonfocal neurologic exam at this time and CT the head is not indicated. The patient will be given a dose of Keppra. Labs with + . Rest normal. Quantitative hCG ordered. Patient sleeping after Keppra loading dose. Has been brought medications in. She is not taking Keppra. The other medication is propranolol 80 mg XL. She does not take this regularly either. Discussed with both the need to be on a stable dose of medication and to avoid alcohol ingestion. Also discussed positive . Recommended that she break the 500 mg Keppra tablets in half and start taking them twice a day. Initial reluctance to admit that alcohol is a problem by both patient and . I strongly advised him that it caused seizures to occur. follow-up with her physician and HOSPITALITY SERVICES MANAGER recommended. Patient stable for outpatient observation and treatment. Laboratory Tests Test 10/27/18 11:30 White Blood Count 8.2 K/UL (4.8-10.8) Red Blood Count 4.29 M/UL (4.20-5.40) Hemoglobin 13.2 G/DL (12.0-16.0) Hematocrit 37.7 % (37.0-47.0) Mean Corpuscular Volume 88 FL (80-99) Mean Corpuscular Hemoglobin 30.7 PG (27.0-31.0) Mean Corpuscular Hemoglobin Concent 35.0 G/DL (32.0-36.0) Red Cell Distribution Width 11.6 % (11.6-14.8) Platelet Count 254 K/UL (150-450) Mean Platelet Volume 8.1 FL (6.5-10.1) Neutrophils (%) (Auto) 65.3 % (45.0-75.0) Lymphocytes (%) (Auto) 25.8 % (20.0-45.0) Monocytes (%) (Auto) 6.6 % (1.0-10.0) Eosinophils (%) (Auto) 1.6 % (0.0-3.0) Basophils (%) (Auto) 0.7 % (0.0-2.0) Urine Color Pale yellow Urine Appearance Clear Urine pH 6 (4.5-8.0) Urine Specific [place] 1.015 (1.005-1.035) Urine Protein Negative (NEGATIVE) Urine Glucose (UA) Negative (NEGATIVE) Urine Ketones Negative (NEGATIVE) Urine Blood Negative (NEGATIVE) Urine Nitrite Negative (NEGATIVE) Urine Bilirubin Negative (NEGATIVE) Urine Urobilinogen Normal MG/DL (0.0-1.0) Urine Leukocyte Esterase Negative (NEGATIVE) Urine HCG, Qualitative Positive (NEGATIVE) Sodium Level 138 MMOL/L (136-145) Potassium Level 4.3 MMOL/L (3.5-5.1) Chloride Level 104 MMOL/L (98-107) Carbon Dioxide Level 27 MMOL/L (21-32) Anion Gap 7 mmol/L (5-15) Blood Urea Nitrogen 6 mg/dL (7-18) L Creatinine 0.7 MG/DL (0.55-1.30) Estimate Glomerular Filtration Rate > 60 mL/min (>60) Glucose Level 106 MG/DL (74-106) Lactic Acid Level 1.20 mmol/L (0.4-2.0) Calcium Level 9.1 MG/DL (8.5-10.1) Magnesium Level 1.9 MG/DL (1.8-2.4) Total Bilirubin 0.3 MG/DL (0.2-1.0) Aspartate Amino Transferase (AST) 14 U/L (15-37) L Alanine Aminotransferase (ALT) 16 U/L (12-78) Alkaline Phosphatase 69 U/L (46-116) Total Creatine Kinase 76 U/L (26-308) Total Protein 7.1 G/DL (6.4-8.2) Albumin 3.9 G/DL (3.4-5.0) Globulin 3.2 g/dL Albumin/Globulin Ratio 1.2 (1.0-2.7) Lipase 132 U/L (73-393) Human Chorionic Gonadotropin, Quant 3896 mIU/mL (1-6) H Urine Opiates Screen Negative (NEGATIVE) Urine Barbiturates Screen Negative (NEGATIVE) Phencyclidine (PCP) Screen Negative (NEGATIVE) Urine Amphetamines Screen Negative (NEGATIVE) Urine Benzodiazepines Screen Negative (NEGATIVE) Urine Cocaine Screen Negative (NEGATIVE) Urine Marijuana (THC) Screen Negative (NEGATIVE) Serum Alcohol < 3 mg/dL EKG Diagnostic Results Rate: normal Rhythm: NSR ST Segments: no acute changes Rhythm Strip Diag. Results EP Interpretation: yes Rhythm: NSR, no PVC's, no ectopy Chest X-Ray Diagnostic Results Chest X-Ray Diagnostic Results : Chest X-Ray Ordered: Yes # of Views/Limited/Complete: 1 View Indication: Other EP Interpretation: Yes Interpretation: no consolidation, no effusion, no pneumothorax Impression: No acute disease Electronically Signed by: Electronically signed by Rohith Mclaughlin MD Last Vital Signs Date Time Temp Pulse Resp B/P (MAP) Pulse Ox O2 Delivery O2 Flow Rate FiO2 10/27/18 16:00 98.4 70 18 105/75 100 Room Air Status: improved Disposition: HOME, SELF-CARE Condition: Improved Scripts Vit #76/Iron,Carb/Fa (PRENATABS RX TABLET) 1 Each Tablet 1 EACH PO DAILY, #30 TAB Prov: Rohith Mclaughlin MD 10/27/18 Referrals: [facility],REFERRING (PCP) Rohith Mclaughlin MD Oct 27, 2018 11:55
[2018-10-27 11:57] LABS: BASOPHILS % (AUTO) 0.7 % (0.0-2.0); EOSINOPHILS % (AUTO) 1.6 % (0.0-3.0); HEMATOCRIT 37.7 % (37.0-47.0); HEMOGLOBIN 13.2 G/DL (12.0-16.0); LYMPHOCYTES % (AUTO) 25.8 % (20.0-45.0); MEAN CORPUSCULAR VOLUME 88 FL (80-99); MONOCYTES % (AUTO) 6.6 % (1.0-10.0); NEUTROPHILS % (AUTO) 65.3 % (45.0-75.0); PLATELET COUNT 254 K/UL (150-450); RED BLOOD COUNT 4.29 M/UL (4.20-5.40); RED CELL DISTRIBUTION WIDTH 11.6 % (11.6-14.8); WHITE BLOOD COUNT 8.2 K/UL (4.8-10.8)
--- NOTE | 2018-10-27 12:04 | Diagnostic Imaging Report ---
EXAM: XR Chest, 1 View CLINICAL HISTORY: NICKY TECHNIQUE: Frontal view of the chest. COMPARISON: Chest radiograph on 09/10/2018 FINDINGS: Hardware: None. Lungs/pleura: Normal. No focal consolidation. No pleural effusion or pneumothorax. Heart/mediastinum: Normal. No cardiomegaly. Soft tissues: Unremarkable. Bones: No acute fracture. Upper abdomen: Normal. IMPRESSION: No acute disease identified.
[2018-10-27 12:06] LABS: ANION GAP 7 mmol/L (5-15); BLOOD UREA NITROGEN 6 mg/dL (7-18); CALCIUM 9.1 MG/DL (8.5-10.1); CARBON DIOXIDE 27 MMOL/L (21-32); CHLORIDE 104 MMOL/L (98-107); CREATININE 0.7 MG/DL (0.55-1.30); POTASSIUM 4.3 MMOL/L (3.5-5.1); SODIUM 138 MMOL/L (136-145)
[2018-10-27 12:10] LABS: ALANINE AMINOTRANSFERASE 16 U/L (12-78); ALBUMIN 3.9 G/DL (3.4-5.0); ALBUMIN/GLOBULIN RATIO 1.2 (1.0-2.7); ALKALINE PHOSPHATASE 69 U/L (46-116); ASPARTATE AMINO TRANSFERASE 14 U/L (15-37); BILIRUBIN,TOTAL 0.3 MG/DL (0.2-1.0); CREATINE KINASE 76 U/L (26-308)
[2018-10-27 12:20] VITALS: BP 102/61
[2018-10-27 14:11] VITALS: BP 92/60
[2018-10-27] MEDS ORDERED: PRENATABS RX T1 EACH PO (15:34)
[2018-10-27 16:00] VITALS: BP 105/75
--- NOTE | 2018-10-27 16:00 | NUR ---
ER DISCHARGE NOTE: Patient is cleared to be discharged per ERMD, pt is aox4, on room air, with stable vital signs. pt was given dc and prescription instructions, pt was able to verbalize understanding, pt id band and iv site removed without complications. pt is able to ambulate with steady gait. pt took all belongings and letf with her .
== END 2018-10-27 16:00 | disposition home or self-care (01) ==
LOC: EMR 10:45
DX: O26.891 Other specified pregnancy related conditions, first trimester (principal); O99.311 Alcohol use complicating pregnancy, first trimester; Z3A.00 Weeks of gestation of pregnancy not specified
CPT/HCPCS: 36415; 71045; 80053; 80307; 81003; 81025; 82550; 83605; 83690; 83735; 84702; 85025; 93005; 96361; 96374; 99284; G0480; J1953; 80329

== ENCOUNTER 2018-10-31 15:55 | Emergency (ER) | payer OTHER ==
[~2018-10-31] VITALS: Ht 157.5 cm; Wt 52.6 kg
[~2018-10-31 15:55] MED LIST changes: +PRENATABS RX T1 EACH PO
[2018-10-31 16:30] VITALS: BP 101/66
[2018-10-31 16:38] LABS: EOSINOPHILS % (AUTO) 1.6 % (0.0-3.0); HEMATOCRIT 36.2 % (37.0-47.0); HEMOGLOBIN 12.6 G/DL (12.0-16.0); LYMPHOCYTES % (AUTO) 26.4 % (20.0-45.0); MEAN CORPUSCULAR VOLUME 86 FL (80-99); MONOCYTES % (AUTO) 6.1 % (1.0-10.0); NEUTROPHILS % (AUTO) 64.9 % (45.0-75.0); PLATELET COUNT 238 K/UL (150-450); RED BLOOD COUNT 4.21 M/UL (4.20-5.40); WHITE BLOOD COUNT 7.8 K/UL (4.8-10.8)
[2018-10-31 16:43] LABS: APPEARANCE,URINE CLEAR; BILIRUBIN, URINE NEGATIVE (NEGATIVE); COLOR,URINE PALE YELLOW; GLUCOSE, URINE (UA) NEGATIVE (NEGATIVE); KETONES,URINE 1+ (NEGATIVE); LEUKOCYTE ESTERASE ,URINE NEGATIVE (NEGATIVE); NITRITE,URINE NEGATIVE (NEGATIVE); PH,URINE 6 (4.5-8.0); PROTEIN,URINE 1+ (NEGATIVE); UROBILINOGEN,URINE NORMAL MG/DL (0.0-1.0)
[2018-10-31 16:49] LABS: ANION GAP 11 mmol/L (5-15); BLOOD UREA NITROGEN 8 mg/dL (7-18); CARBON DIOXIDE 23 MMOL/L (21-32); CHLORIDE 103 MMOL/L (98-107); CREATININE 0.7 MG/DL (0.55-1.30); POTASSIUM 3.8 MMOL/L (3.5-5.1); SODIUM 137 MMOL/L (136-145)
[2018-10-31 16:54] LABS: ALANINE AMINOTRANSFERASE 13 U/L (12-78); ALBUMIN 4.1 G/DL (3.4-5.0); ALBUMIN/GLOBULIN RATIO 1.5 (1.0-2.7); ALKALINE PHOSPHATASE 68 U/L (46-116); ASPARTATE AMINO TRANSFERASE 14 U/L (15-37); BILIRUBIN,TOTAL 0.3 MG/DL (0.2-1.0)
--- NOTE | 2018-10-31 17:26 | Emergency Room Report ---
History of Present Illness General Chief Complaint: Seizure Source: Patient Present Illness HPI 23-year-old female presents ED for evaluation. Brought in by status post seizure. Happened today at home. Witnessed. In bed. No head injury. Upon arrival patient is postictal but is answering questions. states that patient is . Patient is describing some cramping pain. 5 out of 10, nonradiating. Denies any spotting or discharge. States she is compliant with her Keppra. Denies drug use. No other aggravating relieving factors. Denies any other associated symptoms Allergies: Coded Allergies: No Known Allergies (Unverified , 11/26/16) Patient History Past Medical History: seizures Past Surgical History: none Pertinent Family History: none Social History: Denies: smoking, alcohol use, drug use Now: Yes Immunizations: UTD Reviewed Nursing Documentation: PMH: Agreed; PSxH: Agreed Nursing Documentation-PMH Past Medical History: No History, Except For Hx Cardiac Problems: No Hx Cancer: No Hx Gastrointestinal Problems: No Hx Neurological Problems: Yes Hx Seizures: Yes Review of Systems All Other Systems: negative except mentioned in HPI Physical Exam Vital Signs Date Time Temp Pulse Resp B/P (MAP) Pulse Ox O2 Delivery O2 Flow Rate FiO2 10/31/18 15:57 98.8 99 20 101/66 (78) 98 Room Air Sp02 EP Interpretation: reviewed, normal General Appearance: no apparent distress, alert, GCS 15, non-toxic, Postictal Head: normocephalic, atraumatic Eyes: bilateral eye normal inspection, bilateral eye PERRL ENT: hearing grossly normal, normal pharynx, no angioedema, normal voice Neck: full range of motion, supple/symm/no masses Respiratory: chest non-tender, lungs clear, normal breath sounds, speaking full sentences Cardiovascular #1: regular rate, rhythm, no edema Cardiovascular #2: 2+ carotid (R), 2+ carotid (L), 2+ radial (R), 2+ radial (L) , 2+ dorsalis pedis (R), 2+ dorsalis pedis (L) Gastrointestinal: normal bowel sounds, non tender, soft, non-distended, no guarding, no rebound Rectal: deferred Genitourinary: normal inspection, no CVA tenderness Musculoskeletal: back normal, gait/station normal, normal range of motion, non- tender Neurologic: alert, oriented x3, responsive, motor strength/tone normal, sensory intact, speech normal Psychiatric: judgement/insight normal, memory normal, mood/affect normal, no suicidal/homicidal ideation Reflexes: 3+ bicep (R), 3+ bicep (L), 3+ tricep (R), 3+ tricep (L), 3+ knee (R) , 3+ knee (L) Skin: normal color, no rash, warm/dry, well hydrated Lymphatic: no adenopathy Medical Decision Making Diagnostic Impression: Primary Impression: Seizure disorder Additional Impression: Threatened ER Course Hospital Course 23-year-old female presents to ED complaining of lower abdominal pain s/p seizure. + Differential diagnoses include: gastrits, gastroenterits, ectopic , ovarian torsion/cyst, UTI Clinical course Patient placed on stretcher in ED. After initial history and physical I ordered labs, IV fluids and OB ultrasound. Labs-no leukocytosis, electrolytes okay, beta hCG greater than 19,000, UA unremarkable Ultrasound shows IUP approximately 5 weeks no heart rate detected. Consideration for nonviable versus early versus pseudo- gestational sac Discussed findings with patient. Explained that she will likely need OB follow- up as outpatient for serial beta hCG and ultrasound. And is currently on Keppra for seizures. Was told by her LAND LEASE INFORMATION CLERK that she needs to half the dose while . safe for discharge with close outpatient follow-up. Has appropriate follow-up. Copies of labs and ultrasound results Diagnosis - seizure disorder, threatened Stable and discharged to home. Followup with PMD/LAND LEASE INFORMATION CLERK. Return to ED if symptoms recur or worsen Labs Test 10/31/18 16:15 White Blood Count 7.8 K/UL (4.8-10.8) Red Blood Count 4.21 M/UL (4.20-5.40) Hemoglobin 12.6 G/DL (12.0-16.0) Hematocrit 36.2 % (37.0-47.0) Mean Corpuscular Volume 86 FL (80-99) Mean Corpuscular Hemoglobin 29.8 PG (27.0-31.0) Mean Corpuscular Hemoglobin Concent 34.7 G/DL (32.0-36.0) Red Cell Distribution Width 11.0 % (11.6-14.8) Platelet Count 238 K/UL (150-450) Mean Platelet Volume 6.8 FL (6.5-10.1) Neutrophils (%) (Auto) 64.9 % (45.0-75.0) Lymphocytes (%) (Auto) 26.4 % (20.0-45.0) Monocytes (%) (Auto) 6.1 % (1.0-10.0) Eosinophils (%) (Auto) 1.6 % (0.0-3.0) Basophils (%) (Auto) 1.0 % (0.0-2.0) Urine Color Pale yellow Urine Appearance Clear Urine pH 6 (4.5-8.0) Urine Specific [place] 1.015 (1.005-1.035) Urine Protein 1+ (NEGATIVE) Urine Glucose (UA) Negative (NEGATIVE) Urine Ketones 1+ (NEGATIVE) Urine Blood Negative (NEGATIVE) Urine Nitrite Negative (NEGATIVE) Urine Bilirubin Negative (NEGATIVE) Urine Urobilinogen Normal MG/DL (0.0-1.0) Urine Leukocyte Esterase Negative (NEGATIVE) Urine RBC 2-4 /HPF (0 - 2) Urine WBC 0 /HPF (0 - 2) Urine Squamous Epithelial Cells Moderate /LPF (NONE/OCC) Urine Bacteria Few /HPF (NONE) Urine HCG, Qualitative Positive (NEGATIVE) Sodium Level 137 MMOL/L (136-145) Potassium Level 3.8 MMOL/L (3.5-5.1) Chloride Level 103 MMOL/L (98-107) Carbon Dioxide Level 23 MMOL/L (21-32) Anion Gap 11 mmol/L (5-15) Blood Urea Nitrogen 8 mg/dL (7-18) Creatinine 0.7 MG/DL (0.55-1.30) Estimat Glomerular Filtration Rate > 60 mL/min (>60) Glucose Level 96 MG/DL (74-106) Calcium Level 9.0 MG/DL (8.5-10.1) Total Bilirubin 0.3 MG/DL (0.2-1.0) Aspartate Amino Transf (AST/SGOT) 14 U/L (15-37) Alanine Aminotransferase (ALT/SGPT) 13 U/L (12-78) Alkaline Phosphatase 68 U/L (46-116) Total Protein 6.9 G/DL (6.4-8.2) Albumin 4.1 G/DL (3.4-5.0) Globulin 2.8 g/dL Albumin/Globulin Ratio 1.5 (1.0-2.7) Lipase 136 U/L (73-393) Urine Opiates Screen Negative (NEGATIVE) Urine Barbiturates Screen Negative (NEGATIVE) Phencyclidine (PCP) Screen Negative (NEGATIVE) Urine Amphetamines Screen Negative (NEGATIVE) Urine Benzodiazepines Screen Negative (NEGATIVE) Urine Cocaine Screen Negative (NEGATIVE) Urine Marijuana (THC) Screen Negative (NEGATIVE) Serum Alcohol < 3 mg/dL CT/MRI/US Diagnostic Results CT/MRI/US Diagnostic Results : Imaging Test Ordered: OB US Impression Impression: Fluid collection in the endometrium with only equivocal decidual reaction, possibly but not definitively a gestational sac. If a gestational sac, dimensions are compatible with 5 week . Note that only a a very questionable yolk sac is demonstrated but, no pole or heart activity demonstrated. Differential considerations include nonviable , very early , pseudogestational sac of ectopic . Correlate with serial beta hCGs, consider follow-up sonography as clinically indicated Small amount of free fluid in the right adnexal region, presumably physiologic. Incidental finding small cervical nabothian cyst Last Vital Signs Date Time Temp Pulse Resp B/P (MAP) Pulse Ox O2 Delivery O2 Flow Rate FiO2 10/31/18 16:30 98.8 91 20 101/66 98 Room Air Status: improved Disposition: HOME, SELF-CARE Condition: Stable Garth Kumar MD Oct 31, 2018 17:25
--- NOTE | 2018-10-31 17:48 | Diagnostic Imaging Report ---
Indication: Fall, seizure, pelvic trauma, pain, positive test Technique: Transabdominal and transvaginal images. Doppler interrogation of the ovaries Comparison: none Findings: Within the endometrium, there is an ovoid fluid collection that measures 15 mm long axis dimension, with only equivocal decidual reaction and equivocal yolk sac. If real, the mean sac diameter is 16 mm. No pole or heart activity demonstrated. The endometrium is thickened. No myometrial abnormality. There is a 4 mm cervical nabothian cyst. The right ovary measures 5.3 cm in length. It demonstrates a thin-walled 2.6 cm presumed corpus luteum. It demonstrates normal blood flow. Left ovary measures 3.6 cm in length. It demonstrates normal blood flow on Doppler imaging. Small amount of free fluid is seen in the right adnexal region Impression: Fluid collection in the endometrium with only equivocal decidual reaction, possibly but not definitively a gestational sac. If a gestational sac, dimensions are compatible with 5 week . Note that only a a very questionable yolk sac is demonstrated but, no pole or heart activity demonstrated. Differential considerations include nonviable , very early , pseudogestational sac of ectopic . Correlate with serial beta hCGs, consider follow-up sonography as clinically indicated Small amount of free fluid in the right adnexal region, presumably physiologic. Incidental finding small cervical nabothian cyst
[2018-10-31 18:29] VITALS: BP_SYST 101; BP_SYST 105; BP_DIAS 66; BP_DIAS 67
== END 2018-10-31 18:31 | disposition home or self-care (01) ==
LOC: EMR 17:27
DX: O99.351 Diseases of the nervous system complicating pregnancy, first trimester (principal); Z3A.01 Less than 8 weeks gestation of pregnancy; G40.909 Epilepsy, unspecified, not intractable, without status epilepticus; O20.0 Threatened abortion
CPT/HCPCS: 36415; 76817; 80053; 80307; 81003; 81025; 83690; 84702; 85025; 99284; G0480; 80329

== ENCOUNTER 2018-11-18 15:46 | Emergency (ER) | payer OTHER ==
[~2018-11-18] VITALS: Ht 157.5 cm; Wt 52.6 kg
[2018-11-18] MEDS ORDERED: KEPPRA500 M4 ORAL (15:57)
--- NOTE | 2018-11-18 15:59 | NUR ---
ED Nurse Note: Patient walked into ED c/o having seizure last night. patient reports hx of seizure and has been compliant with the ordered medication Keppra. patient reports she is about 2months . 2 Para 1, will be seeing OBGYN tomorrow per patient. patient is alert awake x4 ambulatory steady gait, breathing unlabored and even, skin is warm to touch.
[2018-11-18 16:07] VITALS: BP 95/53
[2018-11-18] MEDS ORDERED: levETIRAcetam 500mg/NS100ml 100 ML IVPB ONE ×2 (16:15→17:45)
[2018-11-18 16:50] LABS: ANION GAP 9 mmol/L (5-15); BLOOD UREA NITROGEN 6 mg/dL (7-18); CALCIUM 9.1 MG/DL (8.5-10.1); CARBON DIOXIDE 26 MMOL/L (21-32); CHLORIDE 104 MMOL/L (98-107); CREATININE 0.7 MG/DL (0.55-1.30); POTASSIUM 3.7 MMOL/L (3.5-5.1); SODIUM 138 MMOL/L (136-145)
[2018-11-18 16:51] LABS: APPEARANCE,URINE CLEAR; BASOPHILS % (AUTO) 0.2 % (0.0-2.0); BILIRUBIN, URINE NEGATIVE (NEGATIVE); COLOR,URINE PALE YELLOW; EOSINOPHILS % (AUTO) 1.5 % (0.0-3.0); GLUCOSE, URINE (UA) NEGATIVE (NEGATIVE); HEMATOCRIT 36.3 % (37.0-47.0); HEMOGLOBIN 12.5 G/DL (12.0-16.0); KETONES,URINE 2+ (NEGATIVE); LEUKOCYTE ESTERASE ,URINE 1+ (NEGATIVE); LYMPHOCYTES % (AUTO) 23.4 % (20.0-45.0); MEAN CORPUSCULAR VOLUME 89 FL (80-99); MONOCYTES % (AUTO) 6.1 % (1.0-10.0); NEUTROPHILS % (AUTO) 68.8 % (45.0-75.0); NITRITE,URINE NEGATIVE (NEGATIVE); PH,URINE 7 (4.5-8.0); PLATELET COUNT 233 K/UL (150-450); PROTEIN,URINE NEGATIVE (NEGATIVE); RED BLOOD COUNT 4.07 M/UL (4.20-5.40); UROBILINOGEN,URINE 1 MG/DL (0.0-1.0); WHITE BLOOD COUNT 8.1 K/UL (4.8-10.8)
[2018-11-18 16:55] LABS: ALANINE AMINOTRANSFERASE 12 U/L (12-78); ALBUMIN 3.6 G/DL (3.4-5.0); ALBUMIN/GLOBULIN RATIO 1.3 (1.0-2.7); ALKALINE PHOSPHATASE 50 U/L (46-116); ASPARTATE AMINO TRANSFERASE 9 U/L (15-37); BILIRUBIN,TOTAL 0.2 MG/DL (0.2-1.0)
--- NOTE | 2018-11-18 17:08 | NUR ---
ED Nurse Note: US at bedside
--- NOTE | 2018-11-18 17:09 | Emergency Room Report ---
History of Present Illness General Chief Complaint: Seizure Source: Patient Present Illness HPI Patient is a 23-year-old female who presented after reported seizure at home. Patient a prior history of seizure disorder. She had been noted to be . Patient had recently had her Keppra dose reduced. She was noted to have some seizure this morning. Patient had previously been on the thousand milligrams of Keppra. She has appointment to follow-up with her CHEMIST tomorrow. She denies any fever. She had been having some episodes of vomiting due to . She denies any abdominal pain. She denies recent alcohol use. Allergies: Coded Allergies: No Known Allergies (Unverified , 11/26/16) Patient History Past Medical History: see triage record Last Menstrual Period: 09/18/18 Now: No Reviewed Nursing Documentation: PMH: Agreed; PSxH: Agreed Nursing Documentation-PMH Past Medical History: No History, Except For Hx Cardiac Problems: No Hx Cancer: No Hx Gastrointestinal Problems: No Hx Neurological Problems: Yes Hx Seizures: Yes Review of Systems All Other Systems: negative except mentioned in HPI Physical Exam Vital Signs Date Time Temp Pulse Resp B/P (MAP) Pulse Ox O2 Delivery O2 Flow Rate FiO2 11/18/18 15:50 98.6 86 16 88/59 (69) 99 Room Air Sp02 EP Interpretation: reviewed, normal General Appearance: normal inspection, well appearing, no apparent distress, alert, GCS 15 Head: atraumatic ENT: normal ENT inspection, hearing grossly normal, normal voice Neck: normal inspection, full range of motion, supple, no bony tend Respiratory: normal inspection, lungs clear, normal breath sounds, no respiratory distress, no retraction, no wheezing Cardiovascular #1: regular rate, rhythm, no edema Gastrointestinal: normal inspection, normal bowel sounds, non tender, soft, no guarding, no hernia Genitourinary: no CVA tenderness Musculoskeletal: normal inspection, back normal, normal range of motion Neurologic: normal inspection, alert, oriented x3, responsive, gelatin maker utility III-XII nml as tested, speech normal Psychiatric: normal inspection, judgement/insight normal, mood/affect normal Medical Decision Making Diagnostic Impression: Primary Impression: Epileptic seizure, generalized ER Course Patient presented after increased seizure activity. Differential diagnosis include was not limited to breakthrough seizure, medication withdrawal, electrolyte abnormality among others. Patient was noted to have prior history of seizure disorder and had recently had her medications adjusted due to . Patient was noted to have more frequent seizure activity since did a reduction of dosage. Patient was noted to have previously been on the thousand milligrams of Keppra. Patient was given IV Keppra in the emergency department. Patient was noted to have recently had Keppra at home. Patient advised to increase the dosage of her Keppra back to baseline. She is advised to follow-up with CHEMIST. Pelvic ultrasound showed intrauterine . Labs Test 11/18/18 16:15 White Blood Count 8.1 K/UL (4.8-10.8) Red Blood Count 4.07 M/UL (4.20-5.40) Hemoglobin 12.5 G/DL (12.0-16.0) Hematocrit 36.3 % (37.0-47.0) Mean Corpuscular Volume 89 FL (80-99) Mean Corpuscular Hemoglobin 30.6 PG (27.0-31.0) Mean Corpuscular Hemoglobin Concent 34.3 G/DL (32.0-36.0) Red Cell Distribution Width 11.0 % (11.6-14.8) Platelet Count 233 K/UL (150-450) Mean Platelet Volume 7.7 FL (6.5-10.1) Neutrophils (%) (Auto) 68.8 % (45.0-75.0) Lymphocytes (%) (Auto) 23.4 % (20.0-45.0) Monocytes (%) (Auto) 6.1 % (1.0-10.0) Eosinophils (%) (Auto) 1.5 % (0.0-3.0) Basophils (%) (Auto) 0.2 % (0.0-2.0) Urine Color Pale yellow Urine Appearance Clear Urine pH 7 (4.5-8.0) Urine Specific [place] 1.010 (1.005-1.035) Urine Protein Negative (NEGATIVE) Urine Glucose (UA) Negative (NEGATIVE) Urine Ketones 2+ (NEGATIVE) Urine Blood Negative (NEGATIVE) Urine Nitrite Negative (NEGATIVE) Urine Bilirubin Negative (NEGATIVE) Urine Urobilinogen 1 MG/DL (0.0-1.0) Urine Leukocyte Esterase 1+ (NEGATIVE) Urine RBC 0-2 /HPF (0 - 2) Urine WBC 0-2 /HPF (0 - 2) Urine Squamous Epithelial Cells Few /LPF (NONE/OCC) Urine Bacteria Few /HPF (NONE) Urine HCG, Qualitative Positive (NEGATIVE) Sodium Level 138 MMOL/L (136-145) Potassium Level 3.7 MMOL/L (3.5-5.1) Chloride Level 104 MMOL/L (98-107) Carbon Dioxide Level 26 MMOL/L (21-32) Anion Gap 9 mmol/L (5-15) Blood Urea Nitrogen 6 mg/dL (7-18) Creatinine 0.7 MG/DL (0.55-1.30) Estimat Glomerular Filtration Rate > 60 mL/min (>60) Glucose Level 105 MG/DL (74-106) Calcium Level 9.1 MG/DL (8.5-10.1) Total Bilirubin 0.2 MG/DL (0.2-1.0) Aspartate Amino Transf (AST/SGOT) 9 U/L (15-37) Alanine Aminotransferase (ALT/SGPT) 12 U/L (12-78) Alkaline Phosphatase 50 U/L (46-116) Total Protein 6.4 G/DL (6.4-8.2) Albumin 3.6 G/DL (3.4-5.0) Globulin 2.8 g/dL Albumin/Globulin Ratio 1.3 (1.0-2.7) Last Vital Signs Date Time Temp Pulse Resp B/P (MAP) Pulse Ox O2 Delivery O2 Flow Rate FiO2 11/18/18 16:07 98.6 83 21 95/53 100 Room Air Status: improved Disposition: HOME, SELF-CARE Condition: Stable Solomon Calloway MD Nov 18, 2018 17:09
[2018-11-18] MEDS ORDERED: KEPPRA1000 MG ORAL (17:32)
[2018-11-18 18:00] VITALS: BP 101/63
[2018-11-18 18:07] VITALS: BP 95/53
--- NOTE | 2018-11-18 18:08 | NUR ---
ER DISCHARGE NOTE: Patient is cleared to be discharged per ERMD DR ARCOS, pt is aox4, on room air, with stable vital signs. pt was given dc and prescription instructions, pt was able to verbalize understanding, pt id band and iv site removed without complications. pt is able to ambulate with steady gait. pt took all belongings.
--- NOTE | 2018-11-19 13:34 | Diagnostic Imaging Report ---
Indication: Pelvic pain. Technique: Grayscale and duplex Doppler imaging of the pelvis performed utilizing a transabdominal scan and endovaginal scan. Comparison: None Findings: Single living IUP demonstrated. Yolk sac noted. Based on crown-rump length gestational age estimated at 7 weeks 5 days +/- 5 days. Neither ovary identified. IMPRESSION: Viable rae intrauterine . Ovaries not seen
== END 2018-11-18 18:07 | disposition home or self-care (01) ==
LOC: EMR 17:00
DX: G40.909 Epilepsy, unspecified, not intractable, without status epilepticus (principal)
CPT/HCPCS: 36415; 76801; 76830; 80053; 81001; 81025; 85025; 96374; 96376; 99284; J1953

== ENCOUNTER → 2019-02-19 | Emergency (ER) | payer SELFPAY ==
[~2019-02-19] VITALS: Ht 157.5 cm; Wt 55.8 kg
[2019-02-19 13:26] VITALS: BP 109/68
--- NOTE | 2019-02-19 13:49 | Emergency Room Report ---
History of Present Illness General Chief Complaint: General Complaint Source: Patient Present Illness HPI This patient left prior to evaluation by medical provider. Allergies: Coded Allergies: No Known Allergies (Unverified , 11/26/16) Patient History Past Medical History: see triage record Pertinent Family History: unable to obtain Last Menstrual Period: SEPTEMBER/2018 - PT DOES NOT KNOW LMP Now: Yes Nursing Documentation-PMH Past Medical History: No History, Except For Hx Cardiac Problems: No Hx Cancer: No Hx Gastrointestinal Problems: No Hx Neurological Problems: Yes Hx Seizures: Yes Physical Exam Vital Signs Date Time Temp Pulse Resp B/P (MAP) Pulse Ox O2 Delivery O2 Flow Rate FiO2 02/19/19 13:05 98.2 96 16 109/68 (82) 98 Room Air Medical Decision Making PA Attestation Dr. Calloway is my supervising Physician whom patient management has been discussed with. Diagnostic Impression: Primary Impression: Patient left without being seen ER Course This patient left prior to evaluation by medical provider. Last Vital Signs Date Time Temp Pulse Resp B/P (MAP) Pulse Ox O2 Delivery O2 Flow Rate FiO2 02/19/19 13:26 96 16 Room Air 02/19/19 13:26 98.2 109/68 98 Disposition: LEFT W/OUT BEING SEEN Condition: Unknown Referrals: NON PHYSICIAN (PCP) Doris Gonzalez Feb 19, 2019 13:49
[2019-02-19 14:05] VITALS: BP 109/68
--- NOTE | 2019-02-19 14:08 | NUR ---
ED Nurse Note: pt walked in from home with . Pt A&Ox4 speaking in clear sentences . Pt refused to be evaluated by ermd due to insurance reasons and walked out refused D/C papers or care.
== END | disposition left against medical advice (07) ==
LOC: EMR 13:25
DX: Z53.21 Procedure and treatment not carried out due to patient leaving prior to being seen by health care provider (principal)

== ENCOUNTER 2019-03-30 08:14 | Emergency (ER) | payer OTHER ==
[~2019-03-30] VITALS: Ht 157.5 cm; Wt 59.9 kg
--- NOTE | 2019-03-30 08:35 | NUR ---
ED Nurse Note: Pt ambulated into ED with family member with c/o syncope episode x3 this morning witnessed by family memeber with Complete loss of conciousness x 1 min each. Pt states 25 wks . Pt is AAOx4 with no signs of cardiac/pulmonary distress. Respirations even and unlabored. Placed pt on electric motor assembler.
--- NOTE | 2019-03-30 08:36 | NUR ---
Pt with episode of syncope states she was in bed. No head trauma.
--- NOTE | 2019-03-30 08:42 | NUR ---
ED Nurse Note: ERMD at bedside.
--- NOTE | 2019-03-30 08:42 | NUR ---
ED Nurse Note: padding applied on both siderails.
[2019-03-30 08:44] VITALS: BP 102/64
[2019-03-30] MEDS ORDERED: levETIRAcetam 500 MG in D5W 110 ML IV ONE (08:45)
--- NOTE | 2019-03-30 08:52 | NUR ---
ED Nurse Note: EKG at bedside.
--- NOTE | 2019-03-30 09:05 | Emergency Room Report ---
History of Present Illness General Chief Complaint: Syncope Present Illness HPI Patient is a 23-year-old female G2, P1 approximately 25 weeks . Patient a prior history of seizure disorder. Patient reports having multiple seizures today. She reports taking Keppra 500 mg at bedtime. 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 She denies seeing her neurologist recently. She had previous episodes of seizure in the past. Denies any vaginal bleeding. She denies any leakage of fluid. Denies any fever. Denies any severe pain. Allergies: Coded Allergies: No Known Allergies (Unverified , 11/26/16) Patient History Past Medical History: see triage record Last Menstrual Period: 09/2018 Now: Yes - 25 weeks : 2 Para: 1 Reviewed Nursing Documentation: PMH: Agreed; PSxH: Agreed Nursing Documentation-PMH Hx Cardiac Problems: No Hx Cancer: No Hx Gastrointestinal Problems: No Hx Neurological Problems: Yes Hx Seizures: Yes Review of Systems All Other Systems: negative except mentioned in HPI Physical Exam Vital Signs Date Time Temp Pulse Resp B/P (MAP) Pulse Ox O2 Delivery O2 Flow Rate FiO2 03/30/19 08:23 98.4 108 18 103/69 (80) 98 Room Air Sp02 EP Interpretation: reviewed, normal General Appearance: normal inspection, well appearing, no apparent distress, alert, GCS 15, non-toxic Head: atraumatic ENT: normal ENT inspection, hearing grossly normal, normal voice Neck: normal inspection, full range of motion, supple, no bony tend Respiratory: normal inspection, lungs clear, normal breath sounds, no respiratory distress, no retraction, no wheezing Cardiovascular #1: regular rate, rhythm, no edema Gastrointestinal: normal inspection, normal bowel sounds, non tender, soft, no guarding, no hernia, other - Gravid uterus Genitourinary: no CVA tenderness Musculoskeletal: normal inspection, back normal, normal range of motion Neurologic: normal inspection, alert, oriented x3, responsive, rounder and backer III-XII nml as tested, speech normal Psychiatric: normal inspection, judgement/insight normal, mood/affect normal Medical Decision Making Diagnostic Impression: Primary Impression: Additional Impression: Seizure disorder ER Course Patient presented for seizure disorder. Differential diagnosis include was not limited to preeclampsia, medication noncompliance, electrolyte abnormality. Bedside ultrasound showed intrauterine with adequate heart tones. Patient was given IV magnesium due to prior history of . She does not appear to be hyperreflexic or have any alteration of her mental status. Patient had previous history of seizure disorder and this appears to be related to her chronic condition. Patient was advised to follow-up with her NATIONAL FACILITIES MANAGER as well as to follow-up with her neurologist. She is to return if worse. Last Vital Signs Date Time Temp Pulse Resp B/P (MAP) Pulse Ox O2 Delivery O2 Flow Rate FiO2 03/30/19 08:44 98.4 108 18 102/64 98 Room Air Status: improved Disposition: HOME, SELF-CARE Condition: Stable Solomon Calloway MD Mar 30, 2019 09:05
[2019-03-30 09:34] LABS: ANION GAP 5 mmol/L (5-15); BLOOD UREA NITROGEN 7 mg/dL (7-18); CALCIUM 7.9 MG/DL (8.5-10.1); CARBON DIOXIDE 27 MMOL/L (21-32); CHLORIDE 106 MMOL/L (98-107); CREATININE 0.7 MG/DL (0.55-1.30); POTASSIUM 4.1 MMOL/L (3.5-5.1); SODIUM 138 MMOL/L (136-145)
[2019-03-30 09:38] LABS: ALANINE AMINOTRANSFERASE 11 U/L (12-78); ALBUMIN 2.5 G/DL (3.4-5.0); ALBUMIN/GLOBULIN RATIO 0.7 (1.0-2.7); ALKALINE PHOSPHATASE 69 U/L (46-116); ASPARTATE AMINO TRANSFERASE 15 U/L (15-37); BILIRUBIN,TOTAL 0.3 MG/DL (0.2-1.0)
[2019-03-30 09:50] LABS: BASOPHILS % (AUTO) 0.8 % (0.0-2.0); EOSINOPHILS % (AUTO) 1.1 % (0.0-3.0); HEMATOCRIT 31.3 % (37.0-47.0); HEMOGLOBIN 10.1 G/DL (12.0-16.0); LYMPHOCYTES % (AUTO) 15.7 % (20.0-45.0); MEAN CORPUSCULAR VOLUME 83 FL (80-99); MONOCYTES % (AUTO) 5.4 % (1.0-10.0); NEUTROPHILS % (AUTO) 77.1 % (45.0-75.0); PLATELET COUNT 248 K/UL (150-450); RED BLOOD COUNT 3.76 M/UL (4.20-5.40); RED CELL DISTRIBUTION WIDTH 12.2 % (11.6-14.8); WHITE BLOOD COUNT 10.2 K/UL (4.8-10.8)
--- NOTE | 2019-03-30 09:58 | NUR ---
ED Nurse Note: Called Lab to remind about urine specimen.
[2019-03-30 10:01] LABS: APPEARANCE,URINE CLOUDY; BILIRUBIN, URINE NEGATIVE (NEGATIVE); COLOR,URINE PALE YELLOW; GLUCOSE, URINE (UA) NEGATIVE (NEGATIVE); KETONES,URINE 2+ (NEGATIVE); LEUKOCYTE ESTERASE ,URINE 1+ (NEGATIVE); NITRITE,URINE POSITIVE (NEGATIVE); PH,URINE 7 (4.5-8.0); PROTEIN,URINE 2+ (NEGATIVE); UROBILINOGEN,URINE NORMAL MG/DL (0.0-1.0)
[2019-03-30] MEDS ORDERED: KEPPRA500 M4 ORAL (10:04)
--- NOTE | 2019-03-30 10:10 | NUR ---
ED Nurse Note: ERMD at bedside speaking to pt and the .
[2019-03-30 10:45] VITALS: BP 96/64
--- NOTE | 2019-03-30 10:46 | NUR ---
ER DISCHARGE NOTE: Patient is cleared to be discharged per Aleida Louis , pt is aox4, on room air, with stable vital signs. pt was given dc and prescription instructions, pt was able to verbalize understanding, pt id band and iv site removed without complications. pt is able to ambulate with steady gait. pt took all belongings.
--- NOTE | 2019-03-30 16:14 | Cardiology Report ---
APPROVED REPORT EKG Measurement Heart [id number] Sinus tachycardia Rightward axis Borderline ECG
[2019-04-02] MEDS ORDERED: CEPHALEXIN500 MG ORAL (06:38)
== END 2019-03-30 10:40 | disposition home or self-care (01) ==
LOC: EMR 09:45
DX: O99.352 Diseases of the nervous system complicating pregnancy, second trimester (principal); Z3A.25 25 weeks gestation of pregnancy; G40.909 Epilepsy, unspecified, not intractable, without status epilepticus; R00.0 Tachycardia, unspecified
CPT/HCPCS: 36415; 80053; 81003; 85025; 87086; 87181; 93005; 96365; 96375; 99284; J1953

== ENCOUNTER 2019-09-05 17:16 | Emergency (ER) | payer OTHER ==
[~2019-09-05] VITALS: Ht 157.5 cm; Wt 54.4 kg
[~2019-09-05 17:16] MED LIST changes: +CEPHALEXIN500 MG ORAL
--- NOTE | 2019-09-05 17:20 | NUR ---
ED Nurse Note: Pt ambulated to ED from home d/t episode of seizure happened at 5Am this morning. Pt is AOx4; denies head nor oral trauma but noted with generalized body weakness and pain. Per pt, "seizure happened when she was sleeping." Placed on bed and gown; bilateral seizure pads placed in. Pt was hooked to monitoring tech, VSS, on RA, afebrile on triage. Safety measures met. Will continue to monitor.
[2019-09-05] MEDS ORDERED: LORazepam 0.5mg tab ORAL ONE (17:45)
--- NOTE | 2019-09-05 17:45 | Emergency Room Report ---
History of Present Illness General Chief Complaint: Seizure Source: Family Member Present Illness HPI Patient presents from home Has history of seizure disorder and had a seizure earlier today The however reports that the patient has not been verbal since her seizure today which is unusual for her patient is smiling and appropriate otherwise When asked questions she does look However is nonverbal There was no reports of vomiting there was no reports of obvious trauma with a seizure Allergies: Coded Allergies: No Known Allergies (Unverified , 11/26/16) COVID-19 Screening Contact w/high risk pt: No Recent Travel to affected area: No Experienced COVID-19 symptoms?: No Patient History Limited by: medical condition Past Medical History: see triage record Now: No Reviewed Nursing Documentation: PMH: Agreed; PSxH: Agreed Nursing Documentation-PMH Hx Cardiac Problems: No Hx Cancer: No Hx Gastrointestinal Problems: No Hx Neurological Problems: Yes Hx Seizures: Yes Review of Systems All Other Systems: limited - Other than the ones mentioned in the history of present illness all others are reviewed however they do stay limited due to the patient's mental status Physical Exam Vital Signs Date Time Temp Pulse Resp B/P (MAP) Pulse Ox O2 Delivery O2 Flow Rate FiO2 09/05/19 17:20 98.4 84 17 114/77 (89) 98 Room Air Sp02 EP Interpretation: reviewed, normal General Appearance: well appearing, no apparent distress Head: normocephalic, atraumatic Eyes: bilateral eye PERRL, bilateral eye EOMI ENT: hearing grossly normal, EOM grossly intact Neck: full range of motion, supple Respiratory: chest non-tender, lungs clear Cardiovascular #1: regular rate, rhythm Gastrointestinal: non tender, soft Musculoskeletal: normal inspection Neurologic: alert, responsive - Appropriately Skin: no rash Lymphatic: normal inspection Medical Decision Making Diagnostic Impression: Primary Impression: Seizure disorder ER Course Multiple differentials including but not limited to neurological neurosurgical, , infectious process entertained given that the patient had some change in status CT imaging was repeated Blood work at this time all within normal limits Patient continues to smile and nod her head also at this time is using 1 letter words such as yes And okay I spoke to the who reports the patient has had seizures over the past several days intermittently Patient is also on Keppra It was discussed the need for close outpatient follow-up with neurology at this time change has not been made medications and patient will have close outpatient follow-up Labs Test 4/17/20 18:08 09/05/19 18:20 White Blood Count 5.9 K/UL (4.8-10.8) Red Blood Count 4.47 M/UL (4.20-5.40) Hemoglobin 11.3 G/DL (12.0-16.0) Hematocrit 37.0 % (37.0-47.0) Mean Corpuscular Volume 83 FL (80-99) Mean Corpuscular Hemoglobin 25.4 PG (27.0-31.0) Mean Corpuscular Hemoglobin Concent 30.7 G/DL (32.0-36.0) Red Cell Distribution Width 17.7 % (11.6-14.8) Platelet Count 298 K/UL (150-450) Mean Platelet Volume 8.4 FL (6.5-10.1) Neutrophils (%) (Auto) 45.5 % (45.0-75.0) Lymphocytes (%) (Auto) 43.2 % (20.0-45.0) Monocytes (%) (Auto) 8.1 % (1.0-10.0) Eosinophils (%) (Auto) 1.3 % (0.0-3.0) Basophils (%) (Auto) 2.0 % (0.0-2.0) Sodium Level 140 MMOL/L (136-145) Potassium Level 4.0 MMOL/L (3.5-5.1) Chloride Level 105 MMOL/L (98-107) Carbon Dioxide Level 24 MMOL/L (21-32) Anion Gap 11 mmol/L (5-15) Blood Urea Nitrogen 9 mg/dL (7-18) Creatinine 0.9 MG/DL (0.55-1.30) Estimat Glomerular Filtration Rate > 60 mL/min (>60) Glucose Level 96 MG/DL (74-106) Calcium Level 9.3 MG/DL (8.5-10.1) Urine Color Pale yellow Urine Appearance Slightly cloudy Urine pH 6.5 (4.5-8.0) Urine Specific [place] 1.010 (1.005-1.035) Urine Protein Negative (NEGATIVE) Urine Glucose (UA) Negative (NEGATIVE) Urine Ketones Negative (NEGATIVE) Urine Blood 5+ (NEGATIVE) Urine Nitrite Negative (NEGATIVE) Urine Bilirubin Negative (NEGATIVE) Urine Urobilinogen Normal MG/DL (0.0-1.0) Urine Leukocyte Esterase Negative (NEGATIVE) Urine RBC 0-2 /HPF (0 - 2) Urine WBC 0-2 /HPF (0 - 2) Urine Squamous Epithelial Cells Many /LPF (NONE/OCC) Urine Bacteria Few /HPF (NONE) Urine HCG, Qualitative Negative (NEGATIVE) Urine Opiates Screen Negative (NEGATIVE) Urine Barbiturates Screen Negative (NEGATIVE) Phencyclidine (PCP) Screen Negative (NEGATIVE) Urine Amphetamines Screen Negative (NEGATIVE) Urine Benzodiazepines Screen Negative (NEGATIVE) Urine Cocaine Screen Negative (NEGATIVE) Urine Marijuana (THC) Screen Negative (NEGATIVE) Rhythm Strip Diag. Results EP Interpretation: yes Rate: 78 Rhythm: NSR, no PVC's, no ectopy CT/MRI/US Diagnostic Results CT/MRI/US Diagnostic Results : Impression ct head: NAD Last Vital Signs Date Time Temp Pulse Resp B/P (MAP) Pulse Ox O2 Delivery O2 Flow Rate FiO2 09/05/19 17:20 98.4 84 17 114/77 (89) 98 Room Air Status: improved Disposition: HOME, SELF-CARE Condition: Improved Additional Instructions: Patient is provided with the discharge instructions notified to follow up with primary doctor in the next 2-3 days otherwise return to the er with any worsening symptoms. Please note that this report is being documented using [employer] technology. This can lead to erroneous entry secondary to incorrect interpretation by the dictating instrument. Suman Parnell DO Sep 05, 2019 17:45
--- NOTE | 2019-09-05 17:52 | NUR ---
ED Nurse Note: Pt went on CT accompanied by tech, on stable condition.
[2019-09-05 17:55] VITALS: BP 114/77
--- NOTE | 2019-09-05 18:09 | Diagnostic Imaging Report ---
EXAM: CT Head Without Intravenous Contrast CLINICAL HISTORY: SZ TECHNIQUE: Axial computed tomography images of the head/brain without intravenous contrast. CTDI is 53.4 mGy and DLP is 1072.2 mGy-cm. One or more of the following dose reduction techniques were used: automated exposure control, adjustment of the mA and/or kV according to patient size, use of iterative reconstruction technique. COMPARISON: Head CT 07/29/2018 FINDINGS: Brain: No hemorrhage, extra-axial fluid collection, mass effect, or edema. No grossly evident acute ischemic infarct. Bones/joints: Unremarkable. No acute fracture. Soft tissues: Unremarkable. Sinuses: Unremarkable as visualized. Mastoid air cells: Unremarkable as visualized. No mastoid effusion. IMPRESSION: 1. No acute intracranial abnormality.
--- NOTE | 2019-09-05 18:14 | NUR ---
ED Nurse Note: Pt returned from CT on stable condition.
--- NOTE | 2019-09-05 18:20 | NUR ---
ED Nurse Note: Urine and blood specimen obtained, sent to labs.
[2019-09-05 18:37] LABS: APPEARANCE,URINE SLIGHTLY CLOUDY; BILIRUBIN, URINE NEGATIVE (NEGATIVE); COLOR,URINE PALE YELLOW; GLUCOSE, URINE (UA) NEGATIVE (NEGATIVE); KETONES,URINE NEGATIVE (NEGATIVE); LEUKOCYTE ESTERASE ,URINE NEGATIVE (NEGATIVE); NITRITE,URINE NEGATIVE (NEGATIVE); PH,URINE 6.5 (4.5-8.0); PROTEIN,URINE NEGATIVE (NEGATIVE); UROBILINOGEN,URINE NORMAL MG/DL (0.0-1.0)
[2019-09-05 18:41] LABS: EOSINOPHILS % (AUTO) 1.3 % (0.0-3.0); HEMOGLOBIN 11.3 G/DL (12.0-16.0); LYMPHOCYTES % (AUTO) 43.2 % (20.0-45.0); MEAN CORPUSCULAR VOLUME 83 FL (80-99); MONOCYTES % (AUTO) 8.1 % (1.0-10.0); NEUTROPHILS % (AUTO) 45.5 % (45.0-75.0); PLATELET COUNT 298 K/UL (150-450); RED BLOOD COUNT 4.47 M/UL (4.20-5.40); RED CELL DISTRIBUTION WIDTH 17.7 % (11.6-14.8); WHITE BLOOD COUNT 5.9 K/UL (4.8-10.8)
[2019-09-05 18:46] LABS: ANION GAP 11 mmol/L (5-15); BLOOD UREA NITROGEN 9 mg/dL (7-18); CALCIUM 9.3 MG/DL (8.5-10.1); CARBON DIOXIDE 24 MMOL/L (21-32); CHLORIDE 105 MMOL/L (98-107); CREATININE 0.9 MG/DL (0.55-1.30); SODIUM 140 MMOL/L (136-145)
[2019-09-05 19:05] VITALS: BP 118/78
== END 2019-09-05 19:05 | disposition home or self-care (01) ==
LOC: EMR 17:45
DX: G40.909 Epilepsy, unspecified, not intractable, without status epilepticus (principal)
CPT/HCPCS: 36415; 70450; 80048; 80307; 81003; 81025; 85025; Z7502; 99284

== ENCOUNTER 2019-09-13 01:43 | Emergency (ER) | payer OTHER ==
[~2019-09-13] VITALS: Ht 165.1 cm; Wt 49.9 kg
[2019-09-13 01:46] VITALS: BP 147/96
--- NOTE | 2019-09-13 01:46 | NUR ---
ED Nurse Note: Patient brought in by ambulance with reports of hospitalization today for seizures. Patient was discharged and had 5 more seizures. Will continue to monitor.
[2019-09-13] MEDS ORDERED: levETIRAcetam 500 MG in D5W 110 ML IV ONE (02:00)
--- NOTE | 2019-09-13 02:00 | NUR ---
ED Nurse Note: IV line started at right AC 20G, patent and running keppra. Will continue to monitor for discharge.
[2019-09-13 02:12] LABS: BASOPHILS % (AUTO) 1.2 % (0.0-2.0); HEMATOCRIT 33.3 % (37.0-47.0); HEMOGLOBIN 10.8 G/DL (12.0-16.0); LYMPHOCYTES % (AUTO) 27.4 % (20.0-45.0); MEAN CORPUSCULAR VOLUME 80 FL (80-99); MONOCYTES % (AUTO) 6.8 % (1.0-10.0); NEUTROPHILS % (AUTO) 63.6 % (45.0-75.0); PLATELET COUNT 267 K/UL (150-450); RED BLOOD COUNT 4.17 M/UL (4.20-5.40); RED CELL DISTRIBUTION WIDTH 14.5 % (11.6-14.8); WHITE BLOOD COUNT 6.3 K/UL (4.8-10.8)
[2019-09-13 02:22] LABS: ANION GAP 13 mmol/L (5-15); BLOOD UREA NITROGEN 10 mg/dL (7-18); CALCIUM 9.2 MG/DL (8.5-10.1); CARBON DIOXIDE 21 MMOL/L (21-32); CHLORIDE 110 MMOL/L (98-107); POTASSIUM 4.3 MMOL/L (3.5-5.1); SODIUM 144 MMOL/L (136-145)
[2019-09-13 02:27] LABS: ALANINE AMINOTRANSFERASE 20 U/L (12-78); ALBUMIN 3.8 G/DL (3.4-5.0); ALBUMIN/GLOBULIN RATIO 1.3 (1.0-2.7); ALKALINE PHOSPHATASE 68 U/L (46-116); ASPARTATE AMINO TRANSFERASE 18 U/L (15-37); BILIRUBIN,TOTAL 0.2 MG/DL (0.2-1.0)
--- NOTE | 2019-09-13 02:33 | NUR ---
ED Nurse Note: Patient tolerated IV medicatio administration of antiseizure medication. Will continue to monitor for change in A&O and discharge. Patient currently A&Ox2 to person and place.
--- NOTE | 2019-09-13 03:35 | NUR ---
ED Nurse Note: Patient is sleeping, easily arousable and A&Ox2, person/place. Will continue to monitor for discharge.
[2019-09-13 04:28] VITALS: BP 100/60
--- NOTE | 2019-09-13 04:45 | NUR ---
ED Nurse Note: Patient currently sleeping with no physical s/s of acute distress. Will continue to monitor patient for discharge.
--- NOTE | 2019-09-13 05:41 | Emergency Room Report ---
History of Present Illness General Chief Complaint: Seizure Source: Medical Record (Solomon Calloway MD) Present Illness HPI Patient is a 23-year-old female who presents after increased seizure activity. Prior history of seizure disorder for which she takes Keppra. Patient had prior multiple seizures throughout the day.Patient a prior history of seizure disorder. Multiple visits for previous similar symptoms. History is limited by patient's postictal status. (Solomon Calloway MD) Allergies: Coded Allergies: No Known Allergies (Unverified , 11/26/16) COVID-19 Screening Contact w/high risk pt: No Recent Travel to affected area: No Experienced COVID-19 symptoms?: No (Solomon Calloway MD) Patient History Past Medical History: see triage record Reviewed Nursing Documentation: PMH: Agreed; PSxH: Agreed (Solomon Calloway MD) Nursing Documentation-PMH Hx Cardiac Problems: No Hx Cancer: No Hx Gastrointestinal Problems: No Hx Neurological Problems: Yes Hx Seizures: Yes (Solomon Calloway MD) Review of Systems All Other Systems: negative except mentioned in HPI (Solomon Calloway MD) Physical Exam Vital Signs Date Time Temp Pulse Resp B/P (MAP) Pulse Ox O2 Delivery O2 Flow Rate FiO2 09/13/19 01:46 98.8 69 16 147/96 97 Room Air Sp02 EP Interpretation: reviewed, normal General Appearance: normal inspection, well appearing, no apparent distress, alert, GCS 15, non-toxic Head: atraumatic ENT: normal ENT inspection, hearing grossly normal, normal voice Neck: normal inspection, full range of motion, supple, no bony tend Respiratory: normal inspection, lungs clear, normal breath sounds, no respiratory distress, no retraction, no wheezing Cardiovascular #1: regular rate, rhythm, no edema Gastrointestinal: normal inspection, normal bowel sounds, non tender, soft, no guarding, no hernia Genitourinary: no CVA tenderness Musculoskeletal: normal inspection, back normal, normal range of motion Neurologic: alert, responsive, speech normal, normal inspection Psychiatric: normal inspection, judgement/insight normal, mood/affect normal (Solomon Calloway MD) Medical Decision Making Diagnostic Impression: Primary Impression: Seizure disorder ER Course Presented for seizure. Differential diagnosis include was not limited to alcohol intoxication, medication noncompliance, seizure disorder among others. Because of complexity of patient's case laboratory tests were ordered. Patient was noted to have prior history of seizure disorder and frequent episodes of noncompliance in the past. She was given IV Keppra in the emergency department. Patient continues to be somnolent and was endorsed to Dr. Lopez pending reevaluation. Labs Test 09/13/19 02:00 09/13/19 08:10 White Blood Count 6.3 K/UL (4.8-10.8) Red Blood Count 4.17 M/UL (4.20-5.40) Hemoglobin 10.8 G/DL (12.0-16.0) Hematocrit 33.3 % (37.0-47.0) Mean Corpuscular Volume 80 FL (80-99) Mean Corpuscular Hemoglobin 26.0 PG (27.0-31.0) Mean Corpuscular Hemoglobin Concent 32.5 G/DL (32.0-36.0) Red Cell Distribution Width 14.5 % (11.6-14.8) Platelet Count 267 K/UL (150-450) Mean Platelet Volume 6.6 FL (6.5-10.1) Neutrophils (%) (Auto) 63.6 % (45.0-75.0) Lymphocytes (%) (Auto) 27.4 % (20.0-45.0) Monocytes (%) (Auto) 6.8 % (1.0-10.0) Eosinophils (%) (Auto) 1.0 % (0.0-3.0) Basophils (%) (Auto) 1.2 % (0.0-2.0) Sodium Level 144 MMOL/L (136-145) Potassium Level 4.3 MMOL/L (3.5-5.1) Chloride Level 110 MMOL/L (98-107) Carbon Dioxide Level 21 MMOL/L (21-32) Anion Gap 13 mmol/L (5-15) Blood Urea Nitrogen 10 mg/dL (7-18) Creatinine 1.0 MG/DL (0.55-1.30) Estimat Glomerular Filtration Rate > 60 mL/min (>60) Glucose Level 84 MG/DL (74-106) Calcium Level 9.2 MG/DL (8.5-10.1) Total Bilirubin 0.2 MG/DL (0.2-1.0) Aspartate Amino Transf (AST/SGOT) 18 U/L (15-37) Alanine Aminotransferase (ALT/SGPT) 20 U/L (12-78) Alkaline Phosphatase 68 U/L (46-116) Total Protein 6.8 G/DL (6.4-8.2) Albumin 3.8 G/DL (3.4-5.0) Globulin 3.0 g/dL Albumin/Globulin Ratio 1.3 (1.0-2.7) Serum Alcohol < 3 mg/dL Urine Color [place] Urine Appearance Slightly cloudy Urine pH 5 (4.5-8.0) Urine Specific [place] 1.020 (1.005-1.035) Urine Protein 2+ (NEGATIVE) Urine Glucose (UA) Negative (NEGATIVE) Urine Ketones 2+ (NEGATIVE) Urine Blood 5+ (NEGATIVE) Urine Nitrite Negative (NEGATIVE) Urine Bilirubin Negative (NEGATIVE) Urine Ictotest Negative (NEGATIVE) Urine Urobilinogen Normal MG/DL (0.0-1.0) Urine Leukocyte Esterase 1+ (NEGATIVE) Urine RBC Tntc /HPF (0 - 2) Urine WBC 2-4 /HPF (0 - 2) Urine Squamous Epithelial Cells Moderate /LPF (NONE/OCC) Urine Bacteria Few /HPF (NONE) Urine HCG, Qualitative Negative (NEGATIVE) Urine Opiates Screen Negative (NEGATIVE) Urine Barbiturates Screen Negative (NEGATIVE) Phencyclidine (PCP) Screen Negative (NEGATIVE) Urine Amphetamines Screen Negative (NEGATIVE) Urine Benzodiazepines Screen Negative (NEGATIVE) Urine Cocaine Screen Negative (NEGATIVE) Urine Marijuana (THC) Screen Negative (NEGATIVE) (Solomon Calloway MD) ER Course Patient was signed out to me pending reevaluation Reevaluation 8:59 AM patient is back to baseline patient states she needs a refill on her Keppra there is a question of noncompliance Patient's keppra refilled Disposition home w/ return precautions Laboratory Tests Test 09/13/19 02:00 09/13/19 08:10 White Blood Count 6.3 K/UL (4.8-10.8) Red Blood Count 4.17 M/UL (4.20-5.40) L Hemoglobin 10.8 G/DL (12.0-16.0) L Hematocrit 33.3 % (37.0-47.0) L Mean Corpuscular Volume 80 FL (80-99) Mean Corpuscular Hemoglobin 26.0 PG (27.0-31.0) L Mean Corpuscular Hemoglobin Concent 32.5 G/DL (32.0-36.0) Red Cell Distribution Width 14.5 % (11.6-14.8) Platelet Count 267 K/UL (150-450) Mean Platelet Volume 6.6 FL (6.5-10.1) Neutrophils (%) (Auto) 63.6 % (45.0-75.0) Lymphocytes (%) (Auto) 27.4 % (20.0-45.0) Monocytes (%) (Auto) 6.8 % (1.0-10.0) Eosinophils (%) (Auto) 1.0 % (0.0-3.0) Basophils (%) (Auto) 1.2 % (0.0-2.0) Sodium Level 144 MMOL/L (136-145) Potassium Level 4.3 MMOL/L (3.5-5.1) Chloride Level 110 MMOL/L (98-107) H Carbon Dioxide Level 21 MMOL/L (21-32) Anion Gap 13 mmol/L (5-15) Blood Urea Nitrogen 10 mg/dL (7-18) Creatinine 1.0 MG/DL (0.55-1.30) Estimated Glomerular Filtration Rate > 60 mL/min (>60) Glucose Level 84 MG/DL (74-106) Calcium Level 9.2 MG/DL (8.5-10.1) Total Bilirubin 0.2 MG/DL (0.2-1.0) Aspartate Amino Transferase (AST) 18 U/L (15-37) Alanine Aminotransferase (ALT) 20 U/L (12-78) Alkaline Phosphatase 68 U/L (46-116) Total Protein 6.8 G/DL (6.4-8.2) Albumin 3.8 G/DL (3.4-5.0) Globulin 3.0 g/dL Albumin/Globulin Ratio 1.3 (1.0-2.7) Serum Alcohol < 3 mg/dL Urine Color Pending Urine Appearance Pending Urine pH Pending Urine Specific [place] Pending Urine Protein Pending Urine Glucose (UA) Pending Urine Ketones Pending Urine Blood Pending Urine Nitrite Pending Urine Bilirubin Pending Urine Urobilinogen Pending Urine Leukocyte Esterase Pending Urine HCG, Qualitative Pending Urine Opiates Screen Pending Urine Barbiturates Screen Pending Phencyclidine (PCP) Screen Pending Urine Amphetamines Screen Pending Urine Benzodiazepines Screen Pending Urine Cocaine Screen Pending Urine Marijuana (THC) Screen Pending (Jamel Lopez MD) Last Vital Signs Date Time Temp Pulse Resp B/P (MAP) Pulse Ox O2 Delivery O2 Flow Rate FiO2 09/13/19 04:28 98.8 67 16 100/60 97 Room Air Status: improved (Solomon Calloway MD) Disposition: HOME, SELF-CARE Condition: Stable Scripts Levetiracetam (KEPPRA) 500 Mg Tablet 500 MG ORAL EVERY 12 HOURS, #60 TAB 0 Refills Prov: Jamel Lopez MD 09/13/19 Referrals: [facility],REFERRING (PCP) [facility] Patient Instructions: Seizure, Adult Additional Instructions: The patient was provided with discharge instructions, notified to follow-up with a primary care doctor and or specialist in the next 24-48 hours, and to return to the ED if they have worsening of their symptoms. Please note that this report is being documented using [employer] technology. This can lead to erroneous entry secondary to incorrect interpretation by the dictating instrument. Solomon Calloway MD Sep 13, 2019 05:41 Jamel Lopez MD Sep 13, 2019 09:01
--- NOTE | 2019-09-13 05:45 | NUR ---
ED Nurse Note: PAtient is still sleeping soundly, vss. Will continue to monitor for shift change.
--- NOTE | 2019-09-13 07:00 | NUR ---
ED Nurse Note: Patient is sleeping with no physical s/s of acute distress.
--- NOTE | 2019-09-13 07:13 | NUR ---
HAND-OFF: Report given to Ny Chau RN.
--- NOTE | 2019-09-13 08:05 | NUR ---
ED Nurse Note: Pt awake and alert, VSS on RA, NAD noted. Pt able to ambulate, went to restroom. Will continue to monitor.
[2019-09-13] MEDS ORDERED: KEPPRA500 M4 ORAL (09:00)
[2019-09-13 09:07] LABS: APPEARANCE,URINE SLIGHTLY CLOUDY; BILIRUBIN, URINE NEGATIVE (NEGATIVE); GLUCOSE, URINE (UA) NEGATIVE (NEGATIVE); KETONES,URINE 2+ (NEGATIVE); LEUKOCYTE ESTERASE ,URINE 1+ (NEGATIVE); NITRITE,URINE NEGATIVE (NEGATIVE); PH,URINE 5 (4.5-8.0); PROTEIN,URINE 2+ (NEGATIVE); UROBILINOGEN,URINE NORMAL MG/DL (0.0-1.0)
[2019-09-13 09:12] VITALS: BP 110/64
[2019-09-13 09:12] LABS: COLOR,URINE AMBER
--- NOTE | 2019-09-13 09:12 | NUR ---
ER DISCHARGE NOTE: Pt is cleared to be discharged per ERMD, pt is aox4, on room air, with stable vital signs. pt was given dc and prescription instructions, pt was able to verbalize understanding, pt id band and iv site removed without complications. pt is able to ambulate with steady gait. pt took all belongings.
== END 2019-09-13 09:12 | disposition home or self-care (01) ==
LOC: EDUNIT# 01:43 → EDBD 01:43 → EMR 02:01
DX: G40.909 Epilepsy, unspecified, not intractable, without status epilepticus (principal); Z79.899 Other long term (current) drug therapy
CPT/HCPCS: 36415; 80053; 80307; 81003; 81025; 82962; 85025; 93005; 96374; G0480; J1953; Z7502; 99284